=== PATIENT | male | born 1950 | race Caucasian/White ===

== ENCOUNTER 2019-06-30 09:42 | Outpatient (CLI) | payer MEDICARE, SELFPAY ==
[2019-06-30 13:35] LABS: Blood Urea Nitrogen 16 mg/dL (9-20); Calcium 9.2 mg/dL (8.4-10.2); Carbon Dioxide 30 mmol/L (22-30); Chloride 102 mmol/L (98-107); Cholesterol 155 mg/dL (0-200); Estimated Glomerular Filt Rate > 60; Glucose 98 mg/dL (75-110); HDL Direct 37 mg/dL; Potassium 4.4 mmol/L (3.4-5.0); Sodium 141 mmol/L (137-145); Triglycerides 119 mg/dL (<150)
[2019-06-30 13:37] LABS: Hemoglobin A1C 5.8 % (<5.7)
[2019-06-30 13:46] LABS: LDL Cholesterol Direct 108 mg/dL
[2019-07-03 01:45] LABS: Homocysteine 13.6 umol/L (<11.4)
== END 2019-06-30 09:43 | disposition home or self-care (01) ==
LOC: ANHWCLAB 09:48
PROVIDERS: PCP Internal Medicine; Visit Provider Internal Medicine
DX: Z79.899 Other long term (current) drug therapy (principal); I10 Essential (primary) hypertension; E78.5 Hyperlipidemia, unspecified
CPT/HCPCS: 36415; 80048; 80061; 83036; 83090; 84443

== ENCOUNTER 2019-09-05 09:53 | Outpatient (CLI) | payer MEDICARE, SELFPAY ==
[2019-09-05 10:22] LABS: Potassium 4.2 mmol/L (3.4-5.0)
[2019-09-05 10:31] LABS: Hemoglobin A1C 5.6 % (<5.7)
[2019-09-05 10:33] LABS: Blood Urea Nitrogen 12 mg/dL (9-20); Calcium 9.2 mg/dL (8.4-10.2); Carbon Dioxide 30 mmol/L (22-30); Chloride 103 mmol/L (98-107); Cholesterol 101 mg/dL (0-200); Estimated Glomerular Filt Rate > 60; Glucose 98 mg/dL (75-110); HDL Direct 42 mg/dL; Sodium 141 mmol/L (137-145); Triglycerides 56 mg/dL (<150)
[2019-09-05 10:34] LABS: LDL Cholesterol Direct 45 mg/dL
[2019-09-05 10:51] LABS: Prostate Specific Antigen 0.9 ng/mL (< OR = 4.0)
== END 2019-09-05 09:54 | disposition home or self-care (01) ==
PROVIDERS: PCP Internal Medicine; Visit Provider Internal Medicine
DX: Z12.5 Encounter for screening for malignant neoplasm of prostate (principal); I10 Essential (primary) hypertension; R73.03 Prediabetes; E78.5 Hyperlipidemia, unspecified
CPT/HCPCS: 36415; 80048; 80061; 83036; 84153; G0103

== ENCOUNTER 2020-02-28 08:41 | Outpatient (CLI) | payer MEDICARE, SELFPAY ==
[2020-02-28 08:58] LABS: Basophils Percent Auto 0.5 % (0.2-1.2); Eosinophils Absolute Auto 0.2 K/mm3 (0-0.3); Eosinophils Percent Auto 2.4 % (0-4.4); Hematocrit 46.5 % (42.0-52.0); Hemoglobin 15.8 g/dL (14.0-18.0); Immature Granulocyte Absolute 0.01 K/mm3 (0.00-0.031); Immature Granulocyte Percent A 0.2 % (0-0.5); Lymphocytes Absolute Auto 2.19 K/mm3 (0.9-3.2); Lymphocytes Percent Auto 34.8 % (18.3-44.2); Mean Corpuscular Volume 91.4 fl (80-100); Mean Platelet Volume 10.1 fl (7.4-10.4); Monocytes Absolute Auto 0.5 K/mm3 (0.1-0.6); Monocytes Percent Auto 8.6 % (2.6-8.5); Neutrophils Absolute Auto 3.4 K/mm3 (1.3-6.7); Neutrophils Percent Auto 53.5 % (45.5-73.1); Platelet Count Result 190 k/mm3 (150-375); Red Blood Count 5.09 M/mm3 (4.6-6.20); Red Cell Distribution Width 12.2 % (11.5-14.5); White Blood Count 6.3 K/mm3 (4.5-10.0)
[2020-02-28 09:08] LABS: Hemoglobin A1C 5.2 % (<5.7)
[2020-02-28 09:11] LABS: Alanine Aminotransferase 21 U/L (4-50); Albumin Level 4.3 g/dL (3.5-5.1); Alkaline Phosphatase 93 U/L (38-126); Anion Gap 7 mmol/L (8-16); Aspartate Amino Transferase 24 U/L (17-59); Bilirubin,Total 1.3 mg/dL (0.2-1.3); Blood Urea Nitrogen 14 mg/dL (9-20); Calcium 9.3 mg/dL (8.4-10.2); Carbon Dioxide 34 mmol/L (22-30); Chloride 100 mmol/L (98-107); Cholesterol 94 mg/dL (0-200); Estimated Glomerular Filt Rate > 60; Glucose 100 mg/dL (75-110); HDL Direct 37 mg/dL; Potassium 4.4 mmol/L (3.4-5.0); Sodium 141 mmol/L (137-145); Triglycerides 70 mg/dL (<150)
[2020-02-28 09:22] LABS: LDL Cholesterol Direct 43 mg/dL
[2020-03-02 11:45] LABS: Homocysteine 12.5 umol/L (<11.4)
== END 2020-02-28 08:42 | disposition home or self-care (01) ==
PROVIDERS: PCP Internal Medicine; Visit Provider Internal Medicine
DX: E78.5 Hyperlipidemia, unspecified (principal); I10 Essential (primary) hypertension; Z79.899 Other long term (current) drug therapy; R73.03 Prediabetes; R79.89 Other specified abnormal findings of blood chemistry
CPT/HCPCS: 36415; 80053; 80061; 83036; 83090; 85025

== ENCOUNTER 2020-07-11 09:21 | Outpatient (CLI) | payer MEDICARE, SELFPAY ==
[2020-07-11 09:48] LABS: Basophils Percent Auto 0.6 % (0.2-1.2); Eosinophils Absolute Auto 0.1 K/mm3 (0-0.3); Eosinophils Percent Auto 2.3 % (0-4.4); Hematocrit 46.8 % (42.0-52.0); Immature Granulocyte Absolute 0.01 K/mm3 (0.00-0.031); Immature Granulocyte Percent A 0.2 % (0-0.5); Lymphocytes Absolute Auto 1.96 K/mm3 (0.9-3.2); Lymphocytes Percent Auto 38.3 % (18.3-44.2); Mean Corpuscular HGB Conc 34.2 g/dl (32-36); Mean Corpuscular Hemoglobin 31.1 pg (26-34); Mean Corpuscular Volume 90.9 fl (80-100); Monocytes Absolute Auto 0.5 K/mm3 (0.1-0.6); Monocytes Percent Auto 8.8 % (2.6-8.5); Neutrophils Absolute Auto 2.6 K/mm3 (1.3-6.7); Neutrophils Percent Auto 49.8 % (45.5-73.1); Platelet Count Result 184 k/mm3 (150-375); Red Blood Count 5.15 M/mm3 (4.6-6.20); Red Cell Distribution Width 12.4 % (11.5-14.5); White Blood Count 5.1 K/mm3 (4.5-10.0)
[2020-07-11 09:57] LABS: Anion Gap 5 mmol/L (8-16); Blood Urea Nitrogen 12 mg/dL (9-20); Calcium 9.3 mg/dL (8.4-10.2); Carbon Dioxide 33 mmol/L (22-30); Chloride 102 mmol/L (98-107); Cholesterol 95 mg/dL (0-200); Estimated Glomerular Filt Rate > 60; Glucose 98 mg/dL (75-110); HDL Direct 45 mg/dL; Sodium 140 mmol/L (137-145); Triglycerides 74 mg/dL (<150)
[2020-07-11 10:01] LABS: Add Urine Microscopic? YES; Appearance Urine Clear (Clear); Bilirubin Urine Negative (Negative); Blood Urine Negative (Negative); Color Urine Yellow (Yellow); Glucose Urine UA Negative (Negative); Ketones Urine Negative (Negative); Leukocyte Esterase Ur Negative LEU/UL (NEGATIVE); Mucus Urine Heavy /lpf; Nitrate Urine Negative (Negative); Protein Urine 1+ mg/dL (Negative); Specific Grav Ur 1.019 (1.001-1.035); WBC Urine 0-3 /hpf (0-3)
[2020-07-11 10:07] LABS: Hemoglobin A1C 5.5 % (<5.7)
[2020-07-11 10:09] LABS: LDL Cholesterol Direct 38 mg/dL
[2020-07-11 10:58] LABS: Vitamin D 25 Hydroxy 38.4 ng/mL
== END 2020-07-11 09:22 | disposition home or self-care (01) ==
LOC: ANHLAB 09:25
PROVIDERS: PCP Internal Medicine; Visit Provider Internal Medicine
DX: R73.03 Prediabetes (principal); Z79.899 Other long term (current) drug therapy; E78.5 Hyperlipidemia, unspecified; I10 Essential (primary) hypertension; E55.9 Vitamin D deficiency, unspecified
CPT/HCPCS: 36415; 80048; 80061; 81001; 82306; 83036; 85025

== ENCOUNTER 2020-07-22 13:58 | Outpatient (CLI) | payer MEDICARE, SELFPAY ==
--- NOTE | ~2020-07-22 | CT_ITS ---
EXAMINATION: CT abdomen pelvis wo/w con DATE: 07/22/2020 14:50 INDICATION: Hematuria TECHNIQUE: Computed tomography (CT) of the abdomen and pelvis was performed without intravenous contr ast. The dose-length product was 1231.85 mGy-cm. Automated exposure control and iterative reconstruct ion technique were employed. COMPARISON: None. FINDINGS: Lung bases are unremarkable. Heart size is normal. No significant pleural or pericardial ef fusion. There are calcified granulomas of the spleen. There is encapsulated groundglass opacification of the mesentery with associated small lymph nodes, consistent with sclerosing mesenteritis. No significant vascular abnormality. Enlarged prostate gland. 3.8 cm right renal cyst. No hydronephro sis. Left renal parapelvic cysts. No hydronephrosis. Gallbladder is present. Calcified granulomas of the spleen. Gallbladder present. Nonobstructive bowel gas pattern. Colonic di verticulosis without evidence for diverticulitis. Mild osteoarthritis of the hips. Irregular mixed ly tic and sclerotic lesions of L1 with subtle expansion of the vertebra. Mild lumbar spondylosis. No fr ee air or free fluid. IMPRESSION: 1. No acute abdominal abnormality. No findings to account for hematuria. 2: Irregular mixed lytic and sclerotic lesions of L1 with subtle expansion of the vertebra. Consider Paget's disease and metastatic disease. 3: Enlarged prostate gland. Reviewed, dictated and finalized at location A.
== END 2020-07-22 13:59 | disposition home or self-care (01) ==
PROVIDERS: PCP Internal Medicine; Visit Provider Internal Medicine
DX: R31.9 Hematuria, unspecified (principal); N40.0 Benign prostatic hyperplasia without lower urinary tract symptoms
CPT/HCPCS: 74178; Q9967

== ENCOUNTER 2020-08-07 08:52 | Outpatient (CLI) | payer MEDICARE, SELFPAY ==
--- NOTE | ~2020-08-07 | NM_ITS ---
EXAMINATION: NM bone scan whole body DATE: 08/07/2020 14:09 INDICATION: Disorder of bone with pagetoid changes at L1 on prior CT and radiographs TECHNIQUE: 27.2 mCi Tc-99m HDP was administered intravenously. Delayed whole-body scintigrams were o btained. COMPARISON: CT dated 07/22/2020 and radiographs dated 08/07/2020 FINDINGS: Prominent diffuse increased uptake throughout the L1 vertebral body and its posterior elements corres ponding to the territory changes seen on prior CT. There is additional moderate increased uptake asso ciated with severe facet osteoarthritis on the left at L5-S1. Additional likely degenerative mild khai nt centered uptake at the bilateral acromioclavicular joints and at the lateral compartment of the ri ght knee. No other suspicious foci of abnormal bone uptake to suggest metastatic disease. IMPRESSION: 1. Prominent diffuse increased uptake throughout the L1 vertebral body and posterior elements consist ent with Paget's disease as seen on prior CT . 2. Additional scattered likely degenerative joint centered uptake most prominent at the left L5-S1 fa cet joint. Reviewed, dictated and finalized at location B. IMPRESSION: 1. Prominent diffuse increased uptake throughout the L1 vertebral body and post erior elements consistent with Paget's disease as seen on prior CT . 2. Additional scattered likely degenerative joint centered uptake most prominen t at the left L5-S1 facet joint.
--- NOTE | ~2020-08-07 | XR_ITS ---
EXAMINATION: XR lumbar spine 2-3V DATE: 08/07/2020 09:22 INDICATION: Abnormal L1 vertebral body. TECHNIQUE: 3 views of lumbar spine were obtained. COMPARISON: CT abdomen and pelvis 07/22/2020 FINDINGS: Bone alignment is normal. Vertebral body heights are normal. L1 vertebral body demonstrates enlargement, cortical thickening, and trabecular thickening, consistent with Paget disease. There is mildly decreased disc height at L3-L4. There are endplate osteophytes at most levels. There is sever e facet joint osteoarthritis in lower lumbar spine. IMPRESSION: 1. 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 2. Mild lumbar spondylosis. Reviewed, dictated and finalized at location A.
--- NOTE | ~2020-08-07 | XR_ITS ---
EXAMINATION: XR sacrum coccyx min 2V DATE: 08/07/2020 09:22 INDICATION: Disorder of bone, unspecified. TECHNIQUE: 3 views of the sacrum and coccyx were obtained. COMPARISON: CT abdomen and pelvis 07/22/2020 FINDINGS: Bone alignment is normal. No fracture. There is mild lumbar spondylosis. There is mild oste oarthritis of the sacroiliac joints. IMPRESSION: 1. Mild lumbar spondylosis. Reviewed, dictated and finalized at location A. IMPRESSION: 1. Mild lumbar spondylosis.
== END 2020-08-07 08:53 | disposition home or self-care (01) ==
PROVIDERS: PCP Internal Medicine; Visit Provider Internal Medicine
DX: M89.9 Disorder of bone, unspecified (principal); M47.816 Spondylosis without myelopathy or radiculopathy, lumbar region; M88.1 Osteitis deformans of vertebrae
CPT/HCPCS: 72100; 72220; 78306; A9561

== ENCOUNTER 2020-08-09 09:58 | Outpatient (CLI) | payer MEDICARE, SELFPAY ==
[2020-08-09 10:47] LABS: Calcium 9.4 mg/dL (8.4-10.2)
[2020-08-09 11:24] LABS: Vitamin D 25 Hydroxy 35.2 ng/mL
[2020-08-14 19:28] LABS: Alkaline Phosphatase 81 U/L (35-144); Macrohepatic Isoenzymes 0 % (<=0)
== END 2020-08-09 09:59 | disposition home or self-care (01) ==
PROVIDERS: PCP Internal Medicine; Visit Provider Internal Medicine
DX: E55.9 Vitamin D deficiency, unspecified (principal); M89.9 Disorder of bone, unspecified; Z79.899 Other long term (current) drug therapy
CPT/HCPCS: 36415; 82306; 82310; 84075; 84080

== ENCOUNTER 2020-11-21 08:10 | Outpatient (CLI) | payer MEDICARE, SELFPAY ==
[2020-11-21 08:39] LABS: Alanine Aminotransferase 21 U/L (4-50); Albumin Level 4.3 g/dL (3.5-5.1); Alkaline Phosphatase 89 U/L (38-126); Anion Gap 5 mmol/L (8-16); Aspartate Amino Transferase 24 U/L (17-59); Bilirubin,Total 1.1 mg/dL (0.2-1.3); Blood Urea Nitrogen 9 mg/dL (9-20); Calcium 9.1 mg/dL (8.4-10.2); Carbon Dioxide 32 mmol/L (22-30); Chloride 104 mmol/L (98-107); Cholesterol 100 mg/dL (0-200); Estimated Glomerular Filt Rate > 60; Glucose 95 mg/dL (65-110); HDL Direct 46 mg/dL; Potassium 4.2 mmol/L (3.4-5.0); Sodium 141 mmol/L (137-145); Triglycerides 60 mg/dL (<150)
[2020-11-21 08:50] LABS: LDL Cholesterol Direct 40 mg/dL
[2020-11-21 11:32] LABS: Hemoglobin A1C 5.7 % (<5.7)
== END 2020-11-21 08:11 | disposition home or self-care (01) ==
PROVIDERS: PCP Internal Medicine; Visit Provider Internal Medicine
DX: Z12.5 Encounter for screening for malignant neoplasm of prostate (principal); R73.03 Prediabetes; E78.5 Hyperlipidemia, unspecified; I10 Essential (primary) hypertension
CPT/HCPCS: 36415; 80053; 80061; 83036; 84153; G0103

== ENCOUNTER 2021-03-14 08:49 | Outpatient (CLI) | payer MEDICARE, SELFPAY ==
[2021-03-14 09:29] LABS: Hemoglobin A1C 5.4 % (<5.7)
[2021-03-14 09:31] LABS: Alanine Aminotransferase 19 U/L (4-50); Albumin Level 4.3 g/dL (3.5-5.1); Alkaline Phosphatase 85 U/L (38-126); Anion Gap 3 mmol/L (8-16); Aspartate Amino Transferase 23 U/L (17-59); Bilirubin,Total 0.9 mg/dL (0.2-1.3); Blood Urea Nitrogen 12 mg/dL (9-20); Calcium 9.4 mg/dL (8.4-10.2); Carbon Dioxide 32 mmol/L (22-30); Chloride 104 mmol/L (98-107); Cholesterol 107 mg/dL (0-200); Estimated Glomerular Filt Rate > 60; Glucose 104 mg/dL (65-110); HDL Direct 47 mg/dL; Potassium 4.5 mmol/L (3.4-5.0); Sodium 139 mmol/L (137-145); Triglycerides 79 mg/dL (<150)
[2021-03-14 09:42] LABS: LDL Cholesterol Direct 47 mg/dL
[2021-03-14 09:48] LABS: Free T4 Free Thyroxine 0.88 ng/mL (0.78-2.19)
== END 2021-03-14 08:50 | disposition home or self-care (01) ==
PROVIDERS: PCP Internal Medicine; Visit Provider Internal Medicine
DX: R73.03 Prediabetes (principal); I10 Essential (primary) hypertension; Z51.81 Encounter for therapeutic drug level monitoring; Z79.899 Other long term (current) drug therapy; E78.5 Hyperlipidemia, unspecified
CPT/HCPCS: 36415; 80048; 80061; 80076; 83036; 84439; 84443

== ENCOUNTER 2021-03-17 09:25 | Outpatient (CLI) | payer MEDICARE, SELFPAY ==
--- NOTE | ~2021-03-17 | XR_ITS ---
XR lumbar spine 2-3V DATE: 03/17/2021 09:44 INDICATION: Low back pain. No injury. TECHNIQUE: AP, lateral, coned lateral lumbosacral views COMPARISON: 08/07/2020 lumbar spine 07/22/2020 CT abdomen pelvis FINDINGS: There is degenerative spurring of the lower thoracic spine. There is patchy lucency and sclerosis first lumbar vertebral body, previously attributed to Paget's d isease. There is degenerative spurring an moderate loss of interspace height at L1-L4. No fracture or bone destruction noted otherwise. The sacroiliac joints are intact. IMPRESSION: Paget's disease of L1 Moderate degenerative disc disease of the lumbar spine Reviewed, dictated and finalized at location A. RETE ANALYST
== END 2021-03-17 09:26 | disposition home or self-care (01) ==
LOC: ANHIMG 09:30
PROVIDERS: PCP Internal Medicine; Visit Provider Internal Medicine
DX: M88.1 Osteitis deformans of vertebrae (principal); M51.36 Other intervertebral disc degeneration, lumbar region
CPT/HCPCS: 72100

== ENCOUNTER 2021-07-29 09:04 | Outpatient (CLI) | payer MEDICARE, SELFPAY ==
[2021-07-29 09:52] LABS: Basophils Percent Auto 0.6 % (0.2-1.2); Eosinophils Absolute Auto 0.2 K/mm3 (0-0.3); Eosinophils Percent Auto 3.2 % (0-4.4); Hematocrit 46.1 % (42.0-52.0); Hemoglobin 15.7 g/dL (14.0-18.0); Immature Granulocyte Absolute 0.01 K/mm3 (0.00-0.031); Immature Granulocyte Percent A 0.2 % (0-0.5); Lymphocytes Absolute Auto 1.98 K/mm3 (0.9-3.2); Lymphocytes Percent Auto 37.4 % (18.3-44.2); Mean Corpuscular HGB Conc 34.1 g/dl (32-36); Mean Corpuscular Hemoglobin 31.5 pg (26-34); Mean Corpuscular Volume 92.6 fl (80-100); Mean Platelet Volume 10.2 fl (7.4-10.4); Monocytes Absolute Auto 0.5 K/mm3 (0.1-0.6); Monocytes Percent Auto 9.3 % (2.6-8.5); Neutrophils Absolute Auto 2.6 K/mm3 (1.3-6.7); Neutrophils Percent Auto 49.3 % (45.5-73.1); Platelet Count Result 211 k/mm3 (150-375); Red Blood Count 4.98 M/mm3 (4.6-6.20); Red Cell Distribution Width 12.3 % (11.5-14.5); White Blood Count 5.3 K/mm3 (4.5-10.0)
[2021-07-29 10:01] LABS: Alanine Aminotransferase 24 U/L (4-50); Albumin Level 4.5 g/dL (3.5-5.1); Alkaline Phosphatase 97 U/L (38-126); Anion Gap 7 mmol/L (8-16); Aspartate Amino Transferase 26 U/L (17-59); Bilirubin,Total 1.4 mg/dL (0.2-1.3); Blood Urea Nitrogen 12 mg/dL (9-20); Carbon Dioxide 31 mmol/L (22-30); Chloride 103 mmol/L (98-107); Cholesterol 108 mg/dL (0-200); Estimated Glomerular Filt Rate > 60; Glucose 105 mg/dL (65-110); HDL Direct 38 mg/dL; Potassium 4.4 mmol/L (3.4-5.0); Sodium 141 mmol/L (137-145); Triglycerides 84 mg/dL (<150)
[2021-07-29 10:02] LABS: Appearance Urine Clear (Clear); Bilirubin Urine Negative (Negative); Blood Urine Negative (Negative); Color Urine Yellow (Yellow); Glucose Urine UA Negative (Negative); Ketones Urine Negative (Negative); Leukocyte Esterase Ur Negative LEU/UL (Negative); Nitrate Urine Negative (Negative); Protein Urine Negative (Negative); Specific Grav Ur 1.015 (1.001-1.035); Urobilinogen Urine 0.2 mg/dL (<2.0)
[2021-07-29 10:11] LABS: LDL Cholesterol Direct 50 mg/dL
[2021-07-29 10:16] LABS: Free T4 Free Thyroxine 0.86 ng/mL (0.78-2.19)
[2021-07-29 10:22] LABS: Add Urine Microscopic? NO
[2021-07-29 10:43] LABS: Hemoglobin A1C 5.4 % (<5.7)
== END 2021-07-29 09:05 | disposition home or self-care (01) ==
LOC: ANHLAB 09:07
PROVIDERS: PCP Internal Medicine; Visit Provider Internal Medicine
DX: R73.03 Prediabetes (principal); E78.5 Hyperlipidemia, unspecified; Z51.81 Encounter for therapeutic drug level monitoring; Z79.899 Other long term (current) drug therapy; I10 Essential (primary) hypertension; R31.21 Asymptomatic microscopic hematuria
CPT/HCPCS: 36415; 80048; 80061; 80076; 81003; 83036; 84439; 84443; 85025

== ENCOUNTER 2021-12-11 09:39 | Outpatient (CLI) | payer MEDICARE, SELFPAY ==
[2021-12-11 10:25] LABS: Alanine Aminotransferase 24 U/L (6-50); Albumin Level 4.3 g/dL (3.5-5.1); Alkaline Phosphatase 97 U/L (38-126); Anion Gap 9 mmol/L (8-16); Aspartate Amino Transferase 27 U/L (17-59); Blood Urea Nitrogen 10 mg/dL (9-20); Carbon Dioxide 31 mmol/L (22-30); Chloride 100 mmol/L (98-107); Cholesterol 95 mg/dL (0-200); Estimated Glomerular Filt Rate > 60; Glucose 102 mg/dL (65-110); HDL Direct 38 mg/dL; Potassium 3.8 mmol/L (3.4-5.0); Sodium 140 mmol/L (137-145); Triglycerides 70 mg/dL (<150)
[2021-12-11 10:35] LABS: Hemoglobin A1C 5.7 % (<5.7)
[2021-12-11 10:36] LABS: LDL Cholesterol Direct 33 mg/dL
[2021-12-11 10:53] LABS: Prostate Specific Antigen 1.3 ng/mL (< OR = 4.0)
== END 2021-12-11 09:40 | disposition home or self-care (01) ==
LOC: ANHLAB 09:43
PROVIDERS: PCP Internal Medicine; Visit Provider Internal Medicine
DX: E78.5 Hyperlipidemia, unspecified (principal); Z12.5 Encounter for screening for malignant neoplasm of prostate; R73.03 Prediabetes; I10 Essential (primary) hypertension
CPT/HCPCS: 36415; 80053; 80061; 83036; 84153; G0103

== ENCOUNTER 2021-12-18 11:34 | Outpatient (CLI) | payer MEDICARE, SELFPAY ==
--- NOTE | ~2021-12-18 | XR_ITS ---
. EXAMINATION: XR lumbar spine 2-3V DATE: 12/18/2021 12:11 INDICATION: Osteitis deformans of unspecified bone. TECHNIQUE: 3 views of lumbar spine were obtained. COMPARISON: Lumbar spine radiographs 03/17/2021, CT abdomen and pelvis 07/22/2020 FINDINGS: Bone alignment is normal. Vertebral body heights are normal. There is cortical and trabecul ar thickening and L1, consistent with Paget disease. There is mildly decreased disc height at L2-L3 a nd L3-L4. There are endplate osteophytes at most levels. There is multilevel facet joint osteoarthrit is, severe at L5-S1. IMPRESSION: 1. Mild lumbar spondylosis. 2. Paget disease involving L1. Reviewed, dictated and finalized at location A.
== END 2021-12-18 11:35 | disposition home or self-care (01) ==
LOC: ANHIMG 11:45
PROVIDERS: PCP Internal Medicine; Visit Provider Internal Medicine
DX: M47.816 Spondylosis without myelopathy or radiculopathy, lumbar region (principal); M88.1 Osteitis deformans of vertebrae
CPT/HCPCS: 72100

== ENCOUNTER 2022-04-07 09:36 | Outpatient (CLI) | payer MEDICARE, SELFPAY ==
[2022-04-07 10:08] LABS: Cholesterol 119 mg/dL (0-200); HDL Direct 44 mg/dL; Triglycerides 86 mg/dL (<150)
[2022-04-07 10:18] LABS: LDL Cholesterol Direct 56 mg/dL
[2022-04-07 10:38] LABS: Hemoglobin A1C 5.6 % (<5.7)
== END 2022-04-07 09:37 | disposition home or self-care (01) ==
LOC: ANHLAB 09:37
PROVIDERS: PCP Internal Medicine; Visit Provider Internal Medicine
DX: E78.5 Hyperlipidemia, unspecified (principal); Z79.899 Other long term (current) drug therapy; I10 Essential (primary) hypertension; R73.03 Prediabetes
CPT/HCPCS: 36415; 80061; 83036

== ENCOUNTER 2022-09-16 11:00 | Outpatient (CLI) | payer MEDICARE, SELFPAY ==
[2022-09-16 12:05] LABS: Basophils Percent Auto 0.6 % (0.2-1.2); Eosinophils Absolute Auto 0.2 K/mm3 (0-0.3); Eosinophils Percent Auto 2.9 % (0-4.4); Hematocrit 45.7 % (42.0-52.0); Hemoglobin 15.4 g/dL (14.0-18.0); Immature Granulocyte Absolute 0.01 K/mm3 (0.00-0.031); Immature Granulocyte Percent A 0.2 % (0-0.5); Lymphocytes Absolute Auto 1.75 K/mm3 (0.9-3.2); Lymphocytes Percent Auto 33.6 % (18.3-44.2); Mean Corpuscular HGB Conc 33.7 g/dl (32-36); Mean Corpuscular Volume 92.1 fl (80-100); Mean Platelet Volume 10.3 fl (7.4-10.4); Monocytes Absolute Auto 0.5 K/mm3 (0.1-0.6); Monocytes Percent Auto 9.4 % (2.6-8.5); Neutrophils Absolute Auto 2.8 K/mm3 (1.3-6.7); Neutrophils Percent Auto 53.3 % (45.5-73.1); Platelet Count Result 188 k/mm3 (150-375); Red Blood Count 4.96 M/mm3 (4.6-6.20); Red Cell Distribution Width 12.4 % (11.5-14.5); White Blood Count 5.2 K/mm3 (4.5-10.0)
[2022-09-16 12:08] LABS: Hemoglobin A1C 5.5 % (<5.7)
[2022-09-16 12:10] LABS: Alanine Aminotransferase 24 U/L (6-50); Albumin Level 4.4 g/dL (3.5-5.1); Alkaline Phosphatase 98 U/L (38-126); Anion Gap 5 mmol/L (8-16); Aspartate Amino Transferase 24 U/L (17-59); Blood Urea Nitrogen 10 mg/dL (9-20); Calcium 8.4 mg/dL (8.4-10.2); Carbon Dioxide 34 mmol/L (22-30); Chloride 102 mmol/L (98-107); Cholesterol 121 mg/dL (0-200); Estimated Glomerular Filt Rate > 60; Glucose 100 mg/dL (65-110); HDL Direct 59 mg/dL; Sodium 141 mmol/L (137-145); Triglycerides 57 mg/dL (<150)
[2022-09-16 12:22] LABS: LDL Cholesterol Direct 58 mg/dL
[2022-09-16 12:41] LABS: Free T4 Free Thyroxine 0.95 ng/mL (0.78-2.19)
== END 2022-09-16 11:01 | disposition home or self-care (01) ==
PROVIDERS: PCP Internal Medicine; Visit Provider Internal Medicine
DX: E78.5 Hyperlipidemia, unspecified (principal); I10 Essential (primary) hypertension; Z13.29 Encounter for screening for other suspected endocrine disorder; R73.03 Prediabetes; Z79.899 Other long term (current) drug therapy
CPT/HCPCS: 36415; 80053; 80061; 83036; 84439; 84443; 85025

== ENCOUNTER 2023-03-01 09:40 | Outpatient (CLI) | payer MEDICARE, SELFPAY ==
[2023-03-01 10:14] LABS: Hemoglobin A1C 5.5 % (<5.7)
[2023-03-01 10:37] LABS: Alanine Aminotransferase 21 U/L (6-50); Albumin Level 4.2 g/dL (3.5-5.1); Alkaline Phosphatase 90 U/L (38-126); Anion Gap 6 mmol/L (8-16); Aspartate Amino Transferase 20 U/L (17-59); Blood Urea Nitrogen 13 mg/dL (9-20); Calcium 9.1 mg/dL (8.4-10.2); Carbon Dioxide 30 mmol/L (22-30); Chloride 103 mmol/L (98-107); Cholesterol 122 mg/dL (0-200); Estimated Glomerular Filt Rate > 60; Glucose 106 mg/dL (65-110); HDL Direct 42 mg/dL; Potassium 4.4 mmol/L (3.4-5.0); Sodium 139 mmol/L (137-145); Triglycerides 100 mg/dL (<150)
[2023-03-01 10:48] LABS: LDL Cholesterol Direct 58 mg/dL
== END 2023-03-01 09:41 | disposition home or self-care (01) ==
LOC: ANHLAB 09:41
PROVIDERS: PCP Internal Medicine; Visit Provider Internal Medicine
DX: R73.03 Prediabetes (principal); E78.5 Hyperlipidemia, unspecified; I10 Essential (primary) hypertension
CPT/HCPCS: 36415; 80053; 80061; 83036

== ENCOUNTER 2023-04-02 10:29 | Observation (INO) | payer MEDICARE, SELFPAY ==
--- NOTE | ~2023-04-02 | XR_ITS ---
XR chest 1V portable DATE: 04/02/2023 15:13 INDICATION: Infection TECHNIQUE: Portable upright AP chest on 04/02/2023 at 1456 hours COMPARISON: None FINDINGS: Heart size is within normal limits. No hilar or mediastinal enlargement. No pulmonary infil trate or consolidation, pleural effusion or pulmonary vascular congestion or pneumothorax is detected . Osteopenia. Degenerative spurring of the thoracic spine. IMPRESSION: No active cardiopulmonary disease Reviewed, dictated and finalized at location A. E MACHINE FEEDER
--- NOTE | ~2023-04-02 | XR_ITS ---
XR knee RT 3V 04/02/2023 11:00 Indication: Right knee swelling Procedure: 3 views right knee Comparison: No prior studies for comparison. Findings: Moderate tricompartment osteoarthritis. Moderate joint effusion. No acute fracture or traum atic malalignment no foreign bodies. Impression: 1: No acute fracture. 2: Moderate tricompartment osteoarthritis of the right knee. 3: Moderate joint effusion. Reviewed, dictated and finalized at location B. HOUSE WORKER Impression: 1: No acute fracture. 2: Moderate tricompartment osteoarthritis of the right knee. 3: Moderate joint effusion.
[2023-04-02 10:35] VITALS: BP 129/77; PULSE 114; RESP 16; TEMP 37; O2SAT 98
--- NOTE | 2023-04-02 12:48 | PC.NURSE ---
blood and synovial fluid hand carried to lab.
[2023-04-02 12:51] LABS: Basophils Percent Auto 0.2 % (0.2-1.2); Eosinophils Percent Auto 0.1 % (0-4.4); Hematocrit 42.5 % (42.0-52.0); Hemoglobin 14.1 g/dL (14.0-18.0); Immature Granulocyte Absolute 0.03 K/mm3 (0.00-0.031); Immature Granulocyte Percent A 0.3 % (0-0.5); Lymphocytes Absolute Auto 1.39 K/mm3 (0.9-3.2); Mean Corpuscular HGB Conc 33.2 g/dl (32-36); Mean Corpuscular Hemoglobin 30.5 pg (26-34); Mean Corpuscular Volume 91.8 fl (80-100); Mean Platelet Volume 10.8 fl (7.4-10.4); Monocytes Absolute Auto 1.3 K/mm3 (0.1-0.6); Monocytes Percent Auto 13.9 % (2.6-8.5); Neutrophils Absolute Auto 6.5 K/mm3 (1.3-6.7); Neutrophils Percent Auto 70.5 % (45.5-73.1); Platelet Count Result 216 k/mm3 (150-375); Red Blood Count 4.63 M/mm3 (4.6-6.20); Red Cell Distribution Width 12.1 % (11.5-14.5); White Blood Count 9.3 K/mm3 (4.5-10.0)
[2023-04-02 13:10] LABS: Anion Gap 10 mmol/L (8-16); Blood Urea Nitrogen 14 mg/dL (9-20); Calcium 9.1 mg/dL (8.4-10.2); Carbon Dioxide 27 mmol/L (22-30); Chloride 100 mmol/L (98-107); Estimated CRCL calculation 67 ml/min; Estimated Glomerular Filt Rate > 60; Glucose 120 mg/dL (65-110); Sodium 137 mmol/L (137-145)
[2023-04-02 13:15] LABS: CRP 18.6 mg/dL (<1.0)
[2023-04-02 13:29] LABS: Erythrocyte Sedimentation Rate 59 mm/hr (0-20)
[2023-04-02 14:12] LABS: Appearance Synovial Fluid Hazy (Clear); Color Synovial Fluid Yellow (Colorless); Source Synovial Fluid Synovial fluid
[2023-04-02 14:13] LABS: Crystals Synovial Fluid None Seen (None Seen); Lymphocytes Synovial Fluid 2 %; Monocytes Synovial Fluid 16 %; Neutrophils Synovial Fluid 82 % (0-25); Nucleated Cell Synovial Fluid 42300 /uL (0-200); RBC Synovial Fluid < 2000 /uL (0-0)
[2023-04-02] MEDS: LACTATED RINGERS 1,000 ML 999 ML IV CONT (14:51)
[2023-04-02 14:54] VITALS: BP 124/77; RESP 16; TEMP 37.7; O2SAT 97
--- NOTE | 2023-04-02 16:06 | ED.LOWEXIN ---
HPI - Extremity Injury (Lower) General Chief Complaint: Extremity Injury, Lower Stated Complaint: knee swelling Time Seen by Provider: 04/02/23 11:24 History of Present Illness HPI Narrative: Patient having swelling and pain to his right knee that started yesterday, denies any recent falls, hurts to bend his knee. Was seen recently by doctor for slight cough and placed on azithromycin. No obvious fevers/chills, no recent injury. Related Data Home Medications Medication Instructions Recorded Confirmed triamcinolone acetonide 0.1 % 1 applic topical BID PRN Itching 04/12/19 03/11/23 topical cream Allergies Allergy/AdvReac Type Severity Reaction Status Date / Time niacin Allergy Unknown Itching, Verified 04/02/23 10:37 RASH Review of Systems Review of Systems: All systems reviewed & are unremarkable except as noted in HPI and below PMFSH Past Medical History Medical History (Updated 04/02/23 @ 17:08 by Nichole Hsu MD) Benign essential hypertension BMI 27.0-27.9,adult BMI 28.0-28.9,adult BMI 29.0-29.9,adult BMI 30.0-30.9,adult Elevated homocysteine Encounter for Medicare annual wellness exam Encounter for routine adult health examination with abnormal findings Encounter for routine adult health examination without abnormal findings Enlarged prostate Follow up Hearing loss Hematuria Hyperlipidemia Lesion of bone of lumbosacral spine Need for influenza vaccination On buttermaker helper drug therapy Paget's bone disease Pre-diabetes Prostate cancer screening Rash Screening for colorectal cancer Vitamin D deficiency Family History Family History Father Hypertension Mother Hypertension Family history of diabetes mellitus in first degree relative Diabetes mellitus Sibling Hypertension Social History Social History Smoking status: Never smoker Alcohol intake: current Lack of Transportation: No Lack of Food: Never True Current Housing: I Have Housing Concerned About Future Housing: No Difficulty Paying Gas/Electric Bills: No Difficulty Paying for Meds: No Currently Unemployed: No Education: High School Diploma/GED Difficulty w/ Childcare or Family Care: No Living arrangements: with family Gender identity (if verbalized by the patient): Male Exam Narrative: EXAMINATION OF ORGAN SYSTEMS/BODY AREAS: Constitutional: Vital signs per nursing GENERAL: Lying comfortably in bed HEAD: Normal with no signs of head trauma. EYES: EOMI, conjunctiva normal ENT: Hearing grossly intact LUNGS: Nonlabored breathing. HEART: [Regular rate and rhythm] ABD: [Soft], [nontender to palpation] EXT: Pain with movement of R knee; tense warm swelling/effusion R knee, normal DP pulse, no signs of overlying erythema SKIN: [No rashes or lesions.] NEURO: [Alert and oriented x 3. No gross focal sensory or strength deficits.] PSYCH: Normal affect Course Vital Signs Vital signs: Vital Signs Temperature 98.6 F 04/02/23 10:35 Pulse Rate 114 H 04/02/23 10:35 Respiratory Rate 16 04/02/23 10:35 Blood Pressure 129/77 04/02/23 10:35 Pulse Oximetry 98 04/02/23 10:35 Oxygen Delivery Room Air 04/02/23 10:35 Temperature 99.8 F H 04/02/23 14:54 Pulse Rate 114 H 04/02/23 10:35 Respiratory Rate 16 04/02/23 14:54 Blood Pressure 124/77 04/02/23 14:54 Pulse Oximetry 97 04/02/23 14:54 Oxygen Delivery Room Air 04/02/23 10:35 Procedures Joint Aspiration/Injection Joint Asp./Inject. 1: Joint Aspiration Date: 04/02/23 Joint Aspiration Time: 12:00 Time Out Performed: Yes Side of body: right Joint Aspirated: knee Ultrasound Guidance: No Skin Prep: other (povidone iodine 1%, chlorhexidine, sterile prep/drape) Local Anesthetic: lidocaine 1% Amount of anesthesia used (mL): 2 Needle Size Used
--- NOTE | 2023-04-02 16:22 | PM.IMHP ---
H&P: HPI History of Present Illness Date/Time: 04/02/23 16:22 Chief Complaint: Knee Pain Narrative: 72 y/o M presents here with painful R knee with PMH of HTN, BPH, Paget's, vit D deficiency, and HLD. Patient reports that morning he woke up and noticed swelling to his right knee. No previous trauma prior to swelling. Patient was having difficulty bending knee due to pain, progressed to where patient was unable to bend knee and had reduction in overall mobility. No erythema or pinpoint tenderness - tenderness diffuse throughout knee. XRay showed no acute fx, moderate OA, and mod joint effusion. Tap of R knee performed in ED with 60 mL of cloudy fluid extracted and sent for analysis. Analysis of arthrocentesis synovial fluid revealed <2000 RBCs, 42,300 nuc cells, 82 neutrophils, no crystals seen - some testing still pending. presentation and lab findings concerning for septic joint, ortho consulted, patient started on antibiotics, and admitted here for further care. no other complaints identified by patient beyond recent URI, started on Z-Pack 2 days after onset of symptoms - feeling better. [facility] Past Medical History Medical History (Updated 04/02/23 @ 23:28 by Unique Bolaños APRN) Elevated homocysteine Enlarged prostate Hearing loss HTN (hypertension) Hyperlipidemia Lesion of bone of lumbosacral spine Paget's bone disease Pre-diabetes Seasonal allergies Vitamin D deficiency Surgical History Surgical History (Updated 04/02/23 @ 23:29 by Unique Bolaños APRN) History of arthroplasty of right knee 1980 Family History Family History Father Hypertension Mother Hypertension Family history of diabetes mellitus in first degree relative Diabetes mellitus Sibling Hypertension Social History Social History (Updated 04/02/23 @ 23:30 by Unique Bolaños APRN) Social History: Currently lives with his brother. Elects Vivek Merrill as his surrogate decision maker. Full Code. Smoking status: Never smoker Alcohol intake: former Substance use: never Lack of Transportation: No Lack of Food: Never True Current Housing: I Have Housing Concerned About Future Housing: No Difficulty Paying Gas/Electric Bills: No Difficulty Paying for Meds: No Currently Unemployed: No Education: High School Diploma/GED Difficulty w/ Childcare or Family Care: No Living arrangements: with family Gender identity (if verbalized by the patient): Male Spiritual care concerns: No Meds Home Medications and Allergies Home Medications Medication Instructions Recorded Confirmed Type Fish Oil 1,200 unit PO BID 04/02/23 04/02/23 History amlodipine 5 mg tablet 5 mg PO DAILY 04/02/23 04/02/23 History atorvastatin 10 mg tablet 5 mg PO DAILY 04/02/23 04/02/23 History lisinopril 20 mg tablet 20 mg PO DAILY 04/02/23 04/02/23 History Allergies Allergy/AdvReac Type Severity Reaction Status Date / Time niacin Allergy Unknown Itching, Verified 04/02/23 10:37 RASH Vital Signs Vital Signs - 24 hr 04/02/23 10:35 04/02/23 14:54 Temperature 98.6 F 99.8 F H Pulse Rate 114 H Respiratory Rate 16 16 Blood Pressure 129/77 124/77 Pulse Oximetry 98 97 Oxygen Delivery Room Air Exam Const: General: no acute distress and uncomfortable HENMT: Face/Nose/Sinus: Normal nares present Mouth: Yes moist mucous membranes Eyes: General: appearance normal, both eyes and all related structures Sclera: sclerae normal Pupils: Equal, round and reactive pupils present Resp: Effort & Inspection: normal respiratory effort Auscultation: clear to auscultation bilaterally Cardio: Rate: regular rate Rhythm: regular rhythm Other: S1-S2 present without murmur, rub, ectopy GI: Inspection: distended GI Palp: Yes Soft to palpation Auscultation: normal bowel sounds Skin: General skin exam: normal color and no rashes or lesions noted Wo
[2023-04-02 17:17] LABS: Appearance Urine Cloudy (Clear); Bacteria Urine None Seen /hpf; Bilirubin Urine Negative (Negative); Blood Urine Negative (Negative); Color Urine Yellow (Yellow); Glucose Urine UA Negative (Negative); Ketones Urine 1+ mg/dL (Negative); Leukocyte Esterase Ur Negative LEU/UL (Negative); Nitrate Urine Negative (Negative); Non Pathogenic Casts 0-2; Protein Urine 1+ mg/dL (Negative); RBC Urine 0-2 /hpf (0-2); Specific Grav Ur 1.022 (1.001-1.035); Squamous Epithelial Cell Urine None seen /hpf (Few)
[2023-04-02 17:52] LABS: Add Urine Microscopic? YES
[2023-04-02 18:49] VITALS: BP 118/69; PULSE 96; RESP 16; O2SAT 98
[2023-04-02 19:22] VITALS: BMI 29.6
--- NOTE | 2023-04-02 19:39 | ADMGEN ---
This patient, Wilson Merrill, was admitted to 3 [facility] Surg Room 316-01. Patient/family oriented to hospital policies and general routines including ID bracelet, bed and alarms, visiting hours, pain management, procedures, bathroom and other care routines, personal items, smoking policy, room service/diet, and visiting hours. Information on how to activate the Rapid Response Team has been discussed. Patient/Family are encouraged to report perceived risks to care and to ask questions if they do not understand what they are told or what they should do.
[2023-04-02 21:42] VITALS: BP 156/78; PULSE 102; RESP 18; TEMP 36.8; O2SAT 95
[2023-04-03 00:44] LABS: Erythrocyte Sedimentation Rate 113 mm/hr (0-20)
[2023-04-03] MEDS: SODIUM CHLORIDE 0.9% IV 1,000 ML 100 ML IV CONT (01:05)
[2023-04-03] MEDS: HYDROcodone/acetaminophen (*CRX) 5-325 MG TABLET 1 TAB PO ×3 (01:07→15:51)
[2023-04-03] MEDS: VANCOMYCIN 1,250 MG/NS 250 ML 1,250 MG/250 ML BAG 166.67 MG IVPB ×2 (02:10→03:59)
[2023-04-03 05:52] VITALS: BP 121/78; PULSE 92; RESP 18; TEMP 36.1; O2SAT 95
[2023-04-03 07:01] LABS: Basophils Percent Auto 0.4 % (0.2-1.2); Eosinophils Percent Auto 0.4 % (0-4.4); Hematocrit 37.5 % (42.0-52.0); Hemoglobin 12.4 g/dL (14.0-18.0); Immature Granulocyte Absolute 0.02 K/mm3 (0.00-0.031); Immature Granulocyte Percent A 0.3 % (0-0.5); Lymphocytes Absolute Auto 1.48 K/mm3 (0.9-3.2); Mean Corpuscular HGB Conc 33.1 g/dl (32-36); Mean Corpuscular Hemoglobin 30.5 pg (26-34); Mean Corpuscular Volume 92.1 fl (80-100); Mean Platelet Volume 10.4 fl (7.4-10.4); Monocytes Absolute Auto 1.2 K/mm3 (0.1-0.6); Monocytes Percent Auto 14.9 % (2.6-8.5); Neutrophils Absolute Auto 5.1 K/mm3 (1.3-6.7); Platelet Count Result 193 k/mm3 (150-375); Red Blood Count 4.07 M/mm3 (4.6-6.20); White Blood Count 7.8 K/mm3 (4.5-10.0)
[2023-04-03 07:24] LABS: Anion Gap 7 mmol/L (8-16); Blood Urea Nitrogen 12 mg/dL (9-20); Calcium 8.5 mg/dL (8.4-10.2); Carbon Dioxide 27 mmol/L (22-30); Chloride 103 mmol/L (98-107); Estimated CRCL calculation 74 ml/min; Estimated Glomerular Filt Rate > 60; Glucose 108 mg/dL (65-110); Potassium 3.6 mmol/L (3.4-5.0); Sodium 137 mmol/L (137-145)
[2023-04-03 07:32] LABS: CRP 19.8 mg/dL (<1.0)
[2023-04-03 08:03] LABS: Procalcitonin 0.2 ng/mL
[2023-04-03] MEDS: DOCUSATE SODIUM 100 MG CAPSULE PO ×2 (08:46→15:52)
[2023-04-03] MEDS: OMEGA 3 POLYUNSAT FATTY ACIDS 1 GM CAP PO (10:39)
[2023-04-03] MEDS: lisinopriL 20 MG TABLET PO (10:39)
[2023-04-03] MEDS: ATORVASTATIN 10 MG TABLET PO (10:39)
[2023-04-03] MEDS: amLODIPine BESYLATE 5 MG TABLET PO (10:40)
[2023-04-03] MEDS: BISACODYL 5 MG TABLET EC PO (10:43)
--- NOTE | 2023-04-03 12:22 | PM.CNOR ---
Assessment and Plan Assessment and plan (1) Effusion, right knee: Code(s): M25.461 - Effusion, right knee Status: Acute Assessment and Plan: KALEN IS S/P ASPIRATION FOR A POSSIBLE SEPTIC RIGHT KNEE JOINT. HE HAS SEVERE DJD PER XRAY. HIS 42 K WBC MAY BE RELATED TO AN INFLAMMATORY PROCESS OR AN EARLY SEPTIC PROCESS. HIS NEUTROPHIL COUNT IS WITHIN RANGE FOR POSSIBLE SEPTIC JOINT. HIS WBC PERIPHERAL COUNT IS NOT ELEVATED. THERE IS SOME CONCERN WITH HIS ELEVATED CRP WELL. HE CURRENTLY FROM A CLINICAL STAND POINT HAS IMPROVED FROM WHEN HIS PAIN BEGAN 2 DAYS AGO. HE MAY ALSO BE HAVING A FLAREUP OF HIS SEVERE DJD TO THE KNEE. HE IS CLINICALLY STABLE WITH NO SIGNS OF SEPSIS. RECOMMEND OBSERVATION FOR NOW TO OBSERVE FOR IMPROVEMENT AND TO WAIT ON CULTURES AND FOLLOW CRP LEVELS. IF CULTURES ARE NEGATIVE MAY CONSIDER RE ASPIRATION AND CORTISONE INJECTION. WILL FOLLOW History of Present Illness HPI Consult date: 04/03/23 Chief complaint: R knee pain and effusion Narrative: KALEN WAS IN THE ED YESTERDAY C/O A 2 DAY HISTORY OF RIGHT KNEE PAIN. HE DENIES ANY FEVER OR CHILLS OR ANY RECENT TRAUMA. HE STATES HIS KNEE LOCKED UP ON HIM NAD WAS HAVING PAIN WITH ROM. HE WAS SEEN IN THE ED AND HAD AN ASPIRATION WHICH WAS SUSPICIOUS FOR SEPTIC JOINT. ASPIRATION REVEALED 42.3 K WBC NAD 82% NEUTROPHILS. GRAM STAIN IS CURRENTLY NEGATIVE AND CULTURES ARE PENDING. HE WAS GIVEN ROCEPHIN IN THE ED. HE CURRENTLY IS FEELING MUCH BETTER AND IS NOT COMPLAINING OF SIGNIFICANT PAIN. HE HAS NO RECORD OF FEVER SINCE ADMISSION. HIS WBC COUNT IS WNL AND HE HAS AN ELEVATED CRP AND ESR. [facility] Past Medical History Medical History Elevated homocysteine Enlarged prostate Hearing loss HTN (hypertension) Hyperlipidemia Lesion of bone of lumbosacral spine Paget's bone disease Pre-diabetes Seasonal allergies Vitamin D deficiency Surgical History Surgical History History of arthroplasty of right knee 1980 Family History Family History Father Hypertension Mother Hypertension Family history of diabetes mellitus in first degree relative Diabetes mellitus Sibling Hypertension Social History Social History Social History: Currently lives with his brother. Elects Vivek Tobijessica as his surrogate decision maker. Full Code. Smoking status: Never smoker Alcohol intake: former Substance use: never Lack of Transportation: No Lack of Food: Never True Current Housing: I Have Housing Concerned About Future Housing: No Difficulty Paying Gas/Electric Bills: No Difficulty Paying for Meds: No Currently Unemployed: No Education: High School Diploma/GED Difficulty w/ Childcare or Family Care: No Living arrangements: with family Gender identity (if verbalized by the patient): Male Spiritual care concerns: No Meds Home Medications and Allergies Home Medications Medication Instructions Recorded Confirmed Type Fish Oil 1,200 unit PO BID 04/02/23 04/02/23 History amlodipine 5 mg tablet 5 mg PO DAILY 04/02/23 04/02/23 History atorvastatin 10 mg tablet 5 mg PO DAILY 04/02/23 04/02/23 History lisinopril 20 mg tablet 20 mg PO DAILY 04/02/23 04/02/23 History Allergies Allergy/AdvReac Type Severity Reaction Status Date / Time niacin Allergy Unknown Itching, Verified 04/02/23 10:37 RASH Vital Signs Vital Signs - 24 hr 04/02/23 14:54 04/02/23 18:49 04/02/23 21:42 Temperature 37.7 C H 36.8 C Pulse Rate 96 102 H Respiratory Rate 16 16 18 Blood Pressure 124/77 118/69 156/78 H Pulse Oximetry 97 98 95 Oxygen Delivery 04/02/23 20:05 04/03/23 05:52 Temperature 36.1 C L Pulse Rate 92 Respiratory Rate 18 Blood Pressure 121/78 Pulse Oximetry 95 Oxygen Delivery Room Air
[2023-04-03 14:00] VITALS: BP 106/69; PULSE 79; RESP 18; TEMP 36.6; O2SAT 97
--- NOTE | 2023-04-03 15:09 | PM.IMPN ---
Progress Note: A&P Assessment and Plan (1) Effusion, right knee: Code(s): M25.461 - Effusion, right knee Status: Acute Assessment and Plan: Status post arthrocentesis performed in ED - 60 ccs out, sent for analysis. Analysis of arthrocentesis synovial fluid revealed <2000 RBCs, 42,300 nuc cells, 82 neutrophils, no crystals seen - some testing still pending. Ortho consulted. c/f septic joint due to mild tachycardia and mild elevation in temp (99.8F) in setting of elevated ESR (59) and CRP (18.6). started on ceftriaxone, transitioned to Vanc (pharmacist to dose) until gram stain has resulted. pain control. Continue vancomycin and ceftriaxone He does have history of right knee osteoarthritis needing arthroscopic surgery in the past Plan HTN: continue home amlodipine and lisinopril. HLD: continue home atorvastatin. supplements: continue fish oil. Diet: heart healthy GI Prophylaxis: not indicated DVT Prophylaxis: SCDs, Lovenox Lines: pIV Code Status: Full Code Subjective Date/time seen: 04/03/23 15:09 Interval history: Feeling at her now. No fever chills. Discussed with Orthopedics Review of Systems Review of Systems: All systems reviewed & are unremarkable except as noted in HPI and below Exam Narrative: GENERAL: Lying comfortably in bed HEAD:? Normal with no signs of head trauma. EYES:? EOMI, conjunctiva normal ENT:? Hearing grossly intact LUNGS:? Nonlabored breathing. HEART:? [Regular rate and rhythm] ABD:? [Soft], [nontender to palpation] EXT: Pain with movement of R knee; restricted range of motion on right knee. Mildly warm tender to touch. SKIN:? [No rashes or lesions.] NEURO: [Alert and oriented x 3. No gross focal sensory or strength deficits.] PSYCH: Normal affect Objective Data Vital Signs Vital Signs: Vital Signs - 24 hr 04/02/23 18:49 04/02/23 21:42 04/02/23 20:05 Temperature 98.2 F Pulse Rate 96 102 H Respiratory Rate 16 18 Blood Pressure 118/69 156/78 H Pulse Oximetry 98 95 Oxygen Delivery Room Air 04/03/23 05:52 Temperature 97 F L Pulse Rate 92 Respiratory Rate 18 Blood Pressure 121/78 Pulse Oximetry 95 Oxygen Delivery Intake/Output Intake/Output: Intake & Output 03/31/23 04/01/23 04/02/23 04/03/23 23:59 23:59 23:59 23:59 Intake Total 1050 500 Output Total 850 Balance 1050 -350 Meds/Results Medications: Active Medications Generic Name Dose Route Start Last Admin Trade Name Freq PRN Reason Stop Dose Admin Acetaminophen 650 mg 04/02/23 23:51 Acetaminophen 325 Mg Tablet PO Q4H PRN Mild Pain (1-3) or Fever Hydrocodone Bitart/Acetaminophen 1 tab 04/02/23 23:51 04/03/23 08:46 Hydrocodone/Acetaminophen (*Crx) 5-325 Mg Tablet PO 1 tab Q4H PRN Administration Moderate Pain (4-6) Amlodipine Besylate 5 mg 04/03/23 11:00 04/03/23 10:40 Amlodipine Besylate 5 Mg Tablet PO 5 mg QAM GLORIA Administration Atorvastatin Calcium 10 mg 04/03/23 11:00 04/03/23 10:39 Atorvastatin 10 Mg Tablet PO 10 mg DAILY GLORIA Administration Bisacodyl 5 mg 04/02/23 23:51 04/03/23 10:43 Bisacodyl 5 Mg Tablet Ec PO 5 mg DAILY PRN Administration Constipation Docusate Sodium 100 mg 04/03/23 09:00 04/03/23 08:46 Docusate Sodium 100 Mg Capsule PO 100 mg BID GLORIA Administration Enoxaparin Sodium 40 mg 04/03/23 09:00 04/03/23 10:40 Enoxaparin 40 Mg/0.4 Ml Syringe SUB-Q 40 mg DAILY GLORIA Administration Fish Oil 1 gm 04/03/23 11:00 04/03/23 10:39 [place] 3 Polyunsat Fatty Acids 1 Gm Cap PO 1 gm QAM GLORIA Administration Vancomycin HCl 1,500 mg in 500 mls @ 250 mls/hr 04/03/23 19:00 Vancomycin 1,500 Mg/D5w 500 Ml IVPB Q18H GLORIA Lisinopril 20 mg 04/03/23 11:00 04/03/23 10:39 Lisinopril 20 Mg Tablet PO 20 mg QAM GLORIA Administration Morphine Sulfate 2 mg 04/02/23 23:51 Morphine Sulfate (*Crx) 2 Mg/Ml Inj IV PUSH Q4H PRN Pain Rated 7-10
[2023-04-03] MEDS: cefTRIAXone 2 GM/NS 100 ML 2 GM/100 ML BAG IVPB (15:45)
[2023-04-03 22:00] VITALS: BP 128/79; PULSE 98; RESP 18; TEMP 37.4; O2SAT 95
[2023-04-04 05:19] VITALS: BP 115/73; PULSE 90; RESP 18; TEMP 37.4; O2SAT 95
[2023-04-04 07:21] LABS: Basophils Percent Auto 0.6 % (0.2-1.2); Eosinophils Absolute Auto 0.1 K/mm3 (0-0.3); Eosinophils Percent Auto 2.1 % (0-4.4); Hematocrit 39.9 % (42.0-52.0); Hemoglobin 13.3 g/dL (14.0-18.0); Immature Granulocyte Absolute 0.03 K/mm3 (0.00-0.031); Immature Granulocyte Percent A 0.5 % (0-0.5); Lymphocytes Absolute Auto 0.99 K/mm3 (0.9-3.2); Mean Corpuscular HGB Conc 33.3 g/dl (32-36); Mean Corpuscular Hemoglobin 30.5 pg (26-34); Mean Corpuscular Volume 91.5 fl (80-100); Mean Platelet Volume 10.5 fl (7.4-10.4); Monocytes Absolute Auto 0.9 K/mm3 (0.1-0.6); Monocytes Percent Auto 13.2 % (2.6-8.5); Neutrophils Absolute Auto 4.5 K/mm3 (1.3-6.7); Neutrophils Percent Auto 68.6 % (45.5-73.1); Platelet Count Result 201 k/mm3 (150-375); Red Blood Count 4.36 M/mm3 (4.6-6.20); White Blood Count 6.6 K/mm3 (4.5-10.0)
[2023-04-04 07:31] LABS: Alanine Aminotransferase 23 U/L (6-50); Albumin Level 3.3 g/dL (3.5-5.1); Alkaline Phosphatase 74 U/L (38-126); Anion Gap 9 mmol/L (8-16); Aspartate Amino Transferase 33 U/L (17-59); Bilirubin,Total 0.9 mg/dL (0.2-1.3); Blood Urea Nitrogen 12 mg/dL (9-20); Calcium 8.5 mg/dL (8.4-10.2); Carbon Dioxide 26 mmol/L (22-30); Chloride 100 mmol/L (98-107); Estimated CRCL calculation 74 ml/min; Estimated Glomerular Filt Rate > 60; Glucose 103 mg/dL (65-110); Magnesium 2.2 mg/dL (1.6-2.3); Potassium 3.5 mmol/L (3.4-5.0); Sodium 135 mmol/L (137-145)
[2023-04-04] MEDS: ATORVASTATIN 10 MG TABLET PO (08:31)
[2023-04-04] MEDS: OMEGA 3 POLYUNSAT FATTY ACIDS 1 GM CAP PO (08:31)
[2023-04-04] MEDS: amLODIPine BESYLATE 5 MG TABLET PO (08:32)
[2023-04-04] MEDS: ACETAMINOPHEN 325 MG TABLET 650 MG PO ×2 (08:34→15:16)
[2023-04-04] MEDS: DOCUSATE SODIUM 100 MG CAPSULE PO ×2 (08:35→16:58)
[2023-04-04] MEDS: lisinopriL 20 MG TABLET PO (08:35)
[2023-04-04] MEDS: BISACODYL 5 MG TABLET EC PO (08:35)
--- NOTE | 2023-04-04 11:09 | PM.PNORT ---
Progress Note: A&P Assessment and Plan (1) Effusion, right knee: Code(s): M25.461 - Effusion, right knee Status: Acute Assessment and Plan: RIGHT KNEE EFFUSION. CULTURES ARE STILL PENDING BUT CURRENTLY NEGATIVE. WBC COUNT IS NORMAL. CLINICALLY HE HAS NO SIGNIFICANT SIGN OF SEPTIC ARTHROSIS. PLAN ON EVALUATION OF PENDING CULTURES FOR FINAL DECISION ON OPERATIVE VS NON OPERATIVE TREATMENT. MAY BE JUST AN EXACERBATION OF ONGOING SEVERE DJD. RE EVALUATION IN AM. Subjective Subjective Date/Time Seen: 04/04/23 11:09 Interval history: RIGHT KNEE EFFUSION ODOING WELL. HE IS VERY COMFORTABLE. HE IS WALKING ON HIS OWN. HE HAS NO NEW SIGN OF INFECTION. Exam Extrem: Other: VSS AFEBRILE KNEE IS NOT WARM, THERE IS NO CELLULITIS, THERE IS A LARGE EFFUSION, MINIMAL PAIN WITH PROM AND AROM CALF SOFT NON TENDER NEG HOMANS SIGN NO NEW SIGNS OF INFECTION Objective Data Vital Signs Vital Signs: Vital Signs - 24 hr 04/03/23 14:00 04/03/23 22:00 04/03/23 20:10 Temperature 36.6 C 37.4 C Pulse Rate 79 98 Respiratory Rate 18 18 Blood Pressure 106/69 128/79 Pulse Oximetry 97 95 Oxygen Delivery Room Air 04/04/23 05:19 04/04/23 08:30 Temperature 37.4 C Pulse Rate 90 Respiratory Rate 18 Blood Pressure 115/73 Pulse Oximetry 95 Oxygen Delivery Room Air Intake/Output Intake/Output: Intake & Output 04/01/23 04/02/23 04/03/23 04/04/23 23:59 23:59 23:59 23:59 Intake Total 1050 2200 810 Output Total 2450 850 Balance 1050 -250 -40 Meds/Results Medications: Active Medications Generic Name Dose Route Start Last Admin Trade Name Freq PRN Reason Stop Dose Admin Acetaminophen 650 mg 04/02/23 23:51 04/04/23 08:34 Acetaminophen 325 Mg Tablet PO 650 mg Q4H PRN Administration Mild Pain (1-3) or Fever Hydrocodone Bitart/Acetaminophen 1 tab 04/02/23 23:51 04/03/23 15:51 Hydrocodone/Acetaminophen (*Crx) 5-325 Mg Tablet PO 1 tab Q4H PRN Administration Moderate Pain (4-6) Amlodipine Besylate 5 mg 04/03/23 11:00 04/04/23 08:32 Amlodipine Besylate 5 Mg Tablet PO 5 mg QAM GLORIA Administration Atorvastatin Calcium 10 mg 04/03/23 11:00 04/04/23 08:31 Atorvastatin 10 Mg Tablet PO 10 mg DAILY GLORIA Administration Bisacodyl 5 mg 04/02/23 23:51 04/04/23 08:35 Bisacodyl 5 Mg Tablet Ec PO 5 mg DAILY PRN Administration Constipation Docusate Sodium 100 mg 04/03/23 09:00 04/04/23 08:35 Docusate Sodium 100 Mg Capsule PO 100 mg BID GLORIA Administration Enoxaparin Sodium 40 mg 04/03/23 09:00 04/04/23 08:35 Enoxaparin 40 Mg/0.4 Ml Syringe SUB-Q Not Given DAILY [facility] Fish Oil 1 gm 04/03/23 11:00 04/04/23 08:31 [place] 3 Polyunsat Fatty Acids 1 Gm Cap PO 1 gm QAM GLORIA Administration Vancomycin HCl 1,500 mg in 500 mls @ 250 mls/hr 04/03/23 19:00 04/03/23 21:33 Vancomycin 1,500 Mg/D5w 500 Ml IVPB Infused Q18H [facility] Infusion Ceftriaxone Sodium 2 gm in 100 mls @ 200 mls/hr 04/03/23 16:00 04/03/23 16:15 Rocephin 2 Gm/Ns 100 Ml IVPB Infused Q24H [facility] Infusion Lisinopril 20 mg 04/03/23 11:00 04/04/23 08:35 Lisinopril 20 Mg Tablet PO 20 mg QAM GLORIA Administration Morphine Sulfate 2 mg 04/02/23 23:51 Morphine Sulfate (*Crx) 2 Mg/Ml Inj IV PUSH Q4H PRN Pain Rated 7-10 Ondansetron HCl 4 mg 04/02/23 23:51 Ondansetron Inj 4 Mg/2 Ml Vial IV PUSH Q6H PRN Nausea And Vomiting Radiology Results: ITS Impressions Knee X-Ray 04/02/23 11:01 Impression: 1: No acute fracture. 2: Moderate tricompartment osteoarthritis of the right knee. 3: Moderate joint effusion. Chest X-Ray 04/02/23 15:14 IMPRESSION: No active cardiopulmonary disease Labs Labs: Laboratory Results - last 24 hr 04/04/23 06:51 WBC 6.6 RBC 4.36 L Hgb 13.3 L Hct 39.9 L MCV 91.5 MCH 30.5 MCHC 33.3 RDW 12.0 Plt Count 201 MPV 10.5 H Immature Gran %
[2023-04-04 12:45] LABS: Vancomycin Trough 7.8 ug/mL (10.0-20.0)
--- NOTE | 2023-04-04 14:34 | PM.IMPN ---
Progress Note: A&P Assessment and Plan (1) Effusion, right knee: Code(s): M25.461 - Effusion, right knee Status: Acute Assessment and Plan: Status post arthrocentesis performed in ED - 60 ccs out, sent for analysis. Analysis of arthrocentesis synovial fluid revealed <2000 RBCs, 42,300 nuc cells, 82 neutrophils, no crystals seen - some testing still pending. Ortho consulted. c/f septic joint due to mild tachycardia and mild elevation in temp (99.8F) in setting of elevated ESR (59) and CRP (18.6). started on ceftriaxone, transitioned to Vanc (pharmacist to dose) until gram stain has resulted. pain control. Continue vancomycin and ceftriaxone He does have history of right knee osteoarthritis needing arthroscopic surgery in the past Awaiting final culture from knee joint Plan HTN: continue home amlodipine and lisinopril. HLD: continue home atorvastatin. supplements: continue fish oil. Diet: heart healthy GI Prophylaxis: not indicated DVT Prophylaxis: SCDs, Lovenox Lines: pIV Code Status: Full Code Subjective Date/time seen: 04/04/23 14:34 Interval history: Feeling better more. Ambulating some. Discussed with Orthopedics. Review of Systems Review of Systems: All systems reviewed & are unremarkable except as noted in HPI and below Exam Narrative: GENERAL: Lying comfortably in bed HEAD:? Normal with no signs of head trauma. EYES:? EOMI, conjunctiva normal ENT:? Hearing grossly intact LUNGS:? Nonlabored breathing. HEART:? [Regular rate and rhythm] ABD:? [Soft], [nontender to palpation] EXT: Pain with movement of R knee; restricted range of motion on right knee. Mildly warm tender to touch. SKIN:? [No rashes or lesions.] NEURO: [Alert and oriented x 3. No gross focal sensory or strength deficits.] PSYCH: Normal affect Objective Data Vital Signs Vital Signs: Vital Signs - 24 hr 04/03/23 22:00 04/03/23 20:10 04/04/23 05:19 Temperature 99.4 F 99.3 F Pulse Rate 98 90 Respiratory Rate 18 18 Blood Pressure 128/79 115/73 Pulse Oximetry 95 95 Oxygen Delivery Room Air 04/04/23 08:30 Temperature Pulse Rate Respiratory Rate Blood Pressure Pulse Oximetry Oxygen Delivery Room Air Intake/Output Intake/Output: Intake & Output 04/01/23 04/02/23 04/03/23 04/04/23 23:59 23:59 23:59 23:59 Intake Total 1050 2200 1170 Output Total 2450 850 Balance 1050 -250 320 Meds/Results Medications: Active Medications Generic Name Dose Route Start Last Admin Trade Name Freq PRN Reason Stop Dose Admin Acetaminophen 650 mg 04/02/23 23:51 04/04/23 08:34 Acetaminophen 325 Mg Tablet PO 650 mg Q4H PRN Administration Mild Pain (1-3) or Fever Hydrocodone Bitart/Acetaminophen 1 tab 04/02/23 23:51 04/03/23 15:51 Hydrocodone/Acetaminophen (*Crx) 5-325 Mg Tablet PO 1 tab Q4H PRN Administration Moderate Pain (4-6) Amlodipine Besylate 5 mg 04/03/23 11:00 04/04/23 08:32 Amlodipine Besylate 5 Mg Tablet PO 5 mg QAM GLORIA Administration Atorvastatin Calcium 10 mg 04/03/23 11:00 04/04/23 08:31 Atorvastatin 10 Mg Tablet PO 10 mg DAILY GL[facility] Administration Bisacodyl 5 mg 04/02/23 23:51 04/04/23 08:35 Bisacodyl 5 Mg Tablet Ec PO 5 mg DAILY PRN Administration Constipation Docusate Sodium 100 mg 04/03/23 09:00 04/04/23 08:35 Docusate Sodium 100 Mg Capsule PO 100 mg BID GLORIA Administration Enoxaparin Sodium 40 mg 04/03/23 09:00 04/04/23 08:35 Enoxaparin 40 Mg/0.4 Ml Syringe SUB-Q Not Given DAILY [facility] Fish Oil 1 gm 04/03/23 11:00 04/04/23 08:31 [place] 3 Polyunsat Fatty Acids 1 Gm Cap PO 1 gm QAM GLORIA Administration Ceftriaxone Sodium 2 gm in 100 mls @ 200 mls/hr 04/03/23 16:00 04/03/23 16:15 Rocephin 2 Gm/Ns 100 Ml IVPB Infused Q24H [facility] Infusion Vancomycin HCl 2,000 mg in 500 mls @ 250 mls/hr 04/04/23 13:00 Vancomycin 2,000 Mg/D5w 500 Ml IVPB Q12H [facility] Lisinopril 20 mg 1
[2023-04-04] MEDS: cefTRIAXone 2 GM/NS 100 ML 2 GM/100 ML BAG IVPB (15:26)
[2023-04-04 20:00] VITALS: O2SAT 97
[2023-04-04 21:22] VITALS: BP 132/77; PULSE 84; RESP 18; TEMP 36.2; O2SAT 97
[2023-04-04] MEDS: HYDROcodone/acetaminophen (*CRX) 5-325 MG TABLET 1 TAB PO (21:32)
[2023-04-05 05:14] VITALS: BP 123/87; PULSE 89; RESP 18; TEMP 36.8; O2SAT 95
[2023-04-05 07:05] LABS: Estimated CRCL calculation 82 ml/min; Estimated Glomerular Filt Rate > 60
[2023-04-05] MEDS: lisinopriL 20 MG TABLET PO (09:00)
[2023-04-05] MEDS: OMEGA 3 POLYUNSAT FATTY ACIDS 1 GM CAP PO (09:00)
[2023-04-05] MEDS: amLODIPine BESYLATE 5 MG TABLET PO (09:00)
[2023-04-05] MEDS: ATORVASTATIN 10 MG TABLET PO (09:00)
[2023-04-05] MEDS: DOCUSATE SODIUM 100 MG CAPSULE PO (09:00)
--- NOTE | 2023-04-05 11:12 | PM.IMPN ---
Progress Note: A&P Assessment and Plan (1) Effusion, right knee: Code(s): M25.461 - Effusion, right knee Status: Acute Assessment and Plan: Status post arthrocentesis performed in ED - 60 ccs out, sent for analysis. Analysis of arthrocentesis synovial fluid revealed <2000 RBCs, 42,300 nuc cells, 82 neutrophils, no crystals seen culture no growth so far. Ortho consulted. c/f septic joint due to mild tachycardia and mild elevation in temp (99.8F) in setting of elevated ESR (59) and CRP (18.6). started on ceftriaxone, and vancomycin pain control. Continue vancomycin and ceftriaxone He does have history of right knee osteoarthritis needing arthroscopic surgery in the past Plan HTN: continue home amlodipine and lisinopril. HLD: continue home atorvastatin. supplements: continue fish oil. Diet: heart healthy GI Prophylaxis: not indicated DVT Prophylaxis: SCDs, Lovenox Lines: pIV Code Status: Full Code Subjective Date/time seen: 04/05/23 11:12 Interval history: No fever chills. Ambulating now swelling and pain is much improved. Review of Systems Review of Systems: All systems reviewed & are unremarkable except as noted in HPI and below Exam Narrative: GENERAL: Lying comfortably in bed HEAD:? Normal with no signs of head trauma. EYES:? EOMI, conjunctiva normal ENT:? Hearing grossly intact LUNGS:? Nonlabored breathing. HEART:? [Regular rate and rhythm] ABD:? [Soft], [nontender to palpation] EXT: Pain with movement of R knee; restricted range of motion on right knee. Mildly warm tender to touch. SKIN:? [No rashes or lesions.] NEURO: [Alert and oriented x 3. No gross focal sensory or strength deficits.] PSYCH: Normal affect Objective Data Vital Signs Vital Signs: Vital Signs - 24 hr 04/04/23 21:22 04/04/23 20:00 04/05/23 05:14 Temperature 97.1 F L 98.2 F Pulse Rate 84 89 Respiratory Rate 18 18 Blood Pressure 132/77 123/87 Pulse Oximetry 97 97 95 Oxygen Delivery Room Air Intake/Output Intake/Output: Intake & Output 04/02/23 04/03/23 04/04/23 04/05/23 23:59 23:59 23:59 23:59 Intake Total 1050 2200 1770 1200 Output Total 2450 1175 1200 Balance 1050 -250 595 0 Meds/Results Medications: Active Medications Generic Name Dose Route Start Last Admin Trade Name Freq PRN Reason Stop Dose Admin Acetaminophen 650 mg 04/02/23 23:51 04/04/23 15:16 Acetaminophen 325 Mg Tablet PO 650 mg Q4H PRN Administration Mild Pain (1-3) or Fever Hydrocodone Bitart/Acetaminophen 1 tab 04/02/23 23:51 04/04/23 21:32 Hydrocodone/Acetaminophen (*Crx) 5-325 Mg Tablet PO 1 tab Q4H PRN Administration Moderate Pain (4-6) Amlodipine Besylate 5 mg 04/03/23 11:00 04/05/23 09:00 Amlodipine Besylate 5 Mg Tablet PO 5 mg QAM GLORIA Administration Atorvastatin Calcium 10 mg 04/03/23 11:00 04/05/23 09:00 Atorvastatin 10 Mg Tablet PO 10 mg DAILY GLORIA Administration Bisacodyl 5 mg 04/02/23 23:51 04/04/23 08:35 Bisacodyl 5 Mg Tablet Ec PO 5 mg DAILY PRN Administration Constipation Docusate Sodium 100 mg 04/03/23 09:00 04/05/23 09:00 Docusate Sodium 100 Mg Capsule PO 100 mg BID GLORIA Administration Enoxaparin Sodium 40 mg 04/03/23 09:00 04/05/23 09:02 Enoxaparin 40 Mg/0.4 Ml Syringe SUB-Q Not Given DAILY [facility] Fish Oil 1 gm 04/03/23 11:00 04/05/23 09:00 [place] 3 Polyunsat Fatty Acids 1 Gm Cap PO 1 gm QAM GLORIA Administration Ceftriaxone Sodium 2 gm in 100 mls @ 200 mls/hr 04/03/23 16:00 04/04/23 15:56 Rocephin 2 Gm/Ns 100 Ml IVPB Infused Q24H [facility] Infusion Vancomycin HCl 2,000 mg in 500 mls @ 250 mls/hr 04/05/23 05:00 04/05/23 06:15 Vancomycin 2,000 Mg/D5w 500 Ml IVPB Infused Q12H [facility] Infusion Lisinopril 20 mg 04/03/23 11:00 04/05/23 09:00 Lisinopril 20 Mg Tablet PO 20 mg QAM GLORIA Administration Morphine Sulfate 2 mg 04/02/23 23:51 Morphine Sulfate (*Crx) 2 Mg/Ml Inj IV
--- NOTE | 2023-04-05 13:13 | PM.PNORT ---
Progress Note: A&P Assessment and Plan (1) Effusion, right knee: Code(s): M25.461 - Effusion, right knee Status: Acute Assessment and Plan: History, exam and radiographs reviewed with the patient. Radiographs reveal severe tricompartmental DJD. Arthrocentesis from ED with final culture results currently pending, no growth to date. Patient currently on ceftriaxone and vancomycin. If final culture results remain negative, will plan for aspiration/injection with cortisone for right knee DJD. PT/OT. WBAT. Pain control. Ice, elevate. Will continue to follow. Subjective Subjective Date/Time Seen: 04/05/23 13:13 Interval history: Patient doing well. Reports improvement in right knee pain. No new concerns. Awaiting final results from cultures at this time. Review of Systems Review of Systems: All systems reviewed & are unremarkable except as noted in HPI and below Exam Const: General: cooperative and average body habitus Nutritional Appearance: average body habitus Orientation/consciousness: patient oriented x3 Limitations: no limitations HENMT: Head: normal to inspection Ears: hearing grossly normal bilaterally Face/Nose/Sinus: Normal external nose present and normal facial exam Face and sinus: normal facial exam Mouth: Yes moist mucous membranes Teeth and gingiva: dentition normal Eyes: General: appearance normal, both eyes and all related structures Pupils: Equal, round and reactive pupils present EOM: EOMs intact bilaterally Neck: Neck: normal visual inspection Chest: Chest palpation & inspection: normal inspection of the chest Resp: Effort & Inspection: normal respiratory effort and able to speak in complete sentences Neuro: General: patient oriented x3 Cranial nerves: Yes Equal, round and reactive pupils present Extrem: General: normal to inspection, capillary refill normal, no calf tenderness and normal gait (antalgic ) Right lower extremity: normal to inspection, normal capillary refill and knee Details: normal to inspection, tenderness (AROM/PROM with pain), swelling (moderate right knee joint effusion ), abnormal ROM Details: pain with active ROM during Details: in extension and in flexion and pain with passive ROM during Details: in extension and in flexion, knee ligament exam normal, Inez's Test Details: positive medially and crepitus (with flexion/extension of the knee. (patella) ) Location: at the kneww and at the patella; no ecchymosis and no unusual warmth Left lower extremity: normal to inspection, normal capillary refill and knee Details: normal to inspection, normal ROM, knee ligament exam normal and Inez's Test (negative ); no tenderness and no swelling Objective Data Vital Signs Vital Signs: Vital Signs - 24 hr 04/04/23 21:22 04/04/23 20:00 04/05/23 05:14 Temperature 36.2 C L 36.8 C Pulse Rate 84 89 Respiratory Rate 18 18 Blood Pressure 132/77 123/87 Pulse Oximetry 97 97 95 Oxygen Delivery Room Air 04/05/23 08:45 Temperature Pulse Rate Respiratory Rate Blood Pressure Pulse Oximetry Oxygen Delivery Room Air Intake/Output Intake/Output: Intake & Output 04/02/23 04/03/23 04/04/23 04/05/23 23:59 23:59 23:59 23:59 Intake Total 1050 2200 1770 1860 Output Total 2450 1175 1200 Balance 1050 -250 595 660 Meds/Results Medications: Active Medications Generic Name Dose Route Start Last Admin Trade Name Freq PRN Reason Stop Dose Admin Acetaminophen 650 mg 04/02/23 23:51 04/04/23 15:16 Acetaminophen 325 Mg Tablet PO 650 mg Q4H PRN Administration Mild Pain (1-3) or Fever Hydrocodone Bitart/Acetaminophen 1 tab 04/02/23 23:51 04/04/23 21:32 Hydrocodone/Acetaminophen (*Crx) 5-325 Mg Tablet PO 1 tab Q4H PRN Administration Moderate Pain (4-6) Amlodipine Besylate 5 mg 04/03/23 11:00 04/05/23 09:00 Amlodipine Besylate 5 Mg Tablet PO 5 mg QAM GLORIA Administration Atorvastatin Calcium 10 mg 04/03/23 11:
[2023-04-05 14:00] VITALS: BP 111/65; PULSE 87; RESP 18; TEMP 36.8; O2SAT 98
[2023-04-05 19:30] LABS: Vancomycin Random 12.4 ug/mL (10-20)
[2023-04-05 20:51] VITALS: BP 121/74; PULSE 92; RESP 18; TEMP 36.7; O2SAT 97
[2023-04-06 05:57] VITALS: BP 111/81; PULSE 92; RESP 18; TEMP 36.4; O2SAT 96
[2023-04-06 06:58] LABS: Basophils Percent Auto 0.5 % (0.2-1.2); Eosinophils Absolute Auto 0.3 K/mm3 (0-0.3); Eosinophils Percent Auto 3.8 % (0-4.4); Hematocrit 44.5 % (42.0-52.0); Hemoglobin 14.7 g/dL (14.0-18.0); Immature Granulocyte Absolute 0.05 K/mm3 (0.00-0.031); Immature Granulocyte Percent A 0.6 % (0-0.5); Lymphocytes Absolute Auto 1.78 K/mm3 (0.9-3.2); Lymphocytes Percent Auto 20.7 % (18.3-44.2); Mean Corpuscular Hemoglobin 30.2 pg (26-34); Mean Corpuscular Volume 91.4 fl (80-100); Mean Platelet Volume 10.2 fl (7.4-10.4); Monocytes Absolute Auto 0.9 K/mm3 (0.1-0.6); Monocytes Percent Auto 10.6 % (2.6-8.5); Neutrophils Absolute Auto 5.5 K/mm3 (1.3-6.7); Neutrophils Percent Auto 63.8 % (45.5-73.1); Platelet Count Result 292 k/mm3 (150-375); Red Blood Count 4.87 M/mm3 (4.6-6.20); Red Cell Distribution Width 12.2 % (11.5-14.5); White Blood Count 8.6 K/mm3 (4.5-10.0)
[2023-04-06 07:47] LABS: Alanine Aminotransferase 33 U/L (6-50); Albumin Level 3.9 g/dL (3.5-5.1); Alkaline Phosphatase 85 U/L (38-126); Anion Gap 11 mmol/L (8-16); Aspartate Amino Transferase 34 U/L (17-59); Bilirubin,Total 0.9 mg/dL (0.2-1.3); Blood Urea Nitrogen 14 mg/dL (9-20); Calcium 9.3 mg/dL (8.4-10.2); Carbon Dioxide 26 mmol/L (22-30); Chloride 101 mmol/L (98-107); Estimated CRCL calculation 74 ml/min; Estimated Glomerular Filt Rate > 60; Glucose 107 mg/dL (65-110); Magnesium 2.4 mg/dL (1.6-2.3); Potassium 3.9 mmol/L (3.4-5.0); Sodium 138 mmol/L (137-145)
[2023-04-06] MEDS: DOCUSATE SODIUM 100 MG CAPSULE PO (09:14)
[2023-04-06] MEDS: OMEGA 3 POLYUNSAT FATTY ACIDS 1 GM CAP PO (09:14)
[2023-04-06] MEDS: lisinopriL 20 MG TABLET PO (09:14)
[2023-04-06] MEDS: ATORVASTATIN 10 MG TABLET PO (09:14)
[2023-04-06 09:15] VITALS: BP 114/70; PULSE 90; RESP 14; O2SAT 100
[2023-04-06] MEDS: amLODIPine BESYLATE 5 MG TABLET PO (09:16)
[2023-04-06 09:52] LABS: CRP 6.8 mg/dL (<1.0)
--- NOTE | 2023-04-06 12:15 | PM.PNORT ---
Progress Note: A&P Assessment and Plan (1) Effusion, right knee: Code(s): M25.461 - Effusion, right knee Status: Acute Assessment and Plan: History, exam and radiographs reviewed with the patient. Radiographs reveal severe tricompartmental DJD. Arthrocentesis from ED with final culture results currently pending, no growth to date. Per [facility], final results will not be available for 7-10 days from date of draw. Patient no longer on ceftriaxone and vancomycin as IV access was lost yesterday and Dr. Corbin denied need for oral antibiotics. Given final cultures will no be available for another 2-5 days, we planned to aspirate the right knee today under sterile conditions for additional pain relief. Patient agreeable, consent obtained. Aspiration performed under sterile conditions. 50mL of serosanguineous fluid aspirated from the right knee. NO injection performed given no culture results. New CRP today is 6.8 which is down from the original CRP of 19.8. WBC normal. Patient was able to walk around the room and in the hallways with provider without severe pain s/p aspiration today. No instability. Recommended use of walker/cane until he is able to be evaluated by the orthopedic outpatient clinic. Discussed PT/OT but patient declines as he feels confident in his stability. Will continue to follow cultures. Okay to d/c without antibiotics from an orthopedic standpoint. Plan Discussed history, exam and radiographs with attending MD, Dr. Corbin. Agrees with current plan as indicated above. No further recommendations at this time. Agrees with discharge planning. Subjective Subjective Date/Time Seen: 04/06/23 12:15 Interval history: Patient doing well. Reports significant improvement in pain. Improvement in ROM of the knee with AROM in bed. Getting up to bedside commode. Review of Systems Review of Systems: All systems reviewed & are unremarkable except as noted in HPI and below Exam Const: General: cooperative and average body habitus Nutritional Appearance: average body habitus Orientation/consciousness: patient oriented x3 Limitations: no limitations HENMT: Head: normal to inspection Ears: hearing grossly normal bilaterally Face/Nose/Sinus: Normal external nose present and normal facial exam Face and sinus: normal facial exam Mouth: Yes moist mucous membranes Teeth and gingiva: dentition normal Eyes: General: appearance normal, both eyes and all related structures Pupils: Equal, round and reactive pupils present EOM: EOMs intact bilaterally Neck: Neck: normal visual inspection Chest: Chest palpation & inspection: normal inspection of the chest Resp: Effort & Inspection: normal respiratory effort and able to speak in complete sentences Neuro: General: patient oriented x3 Cranial nerves: Yes Equal, round and reactive pupils present Extrem: General: normal to inspection, capillary refill normal, no calf tenderness and normal gait (antalgic ) Right lower extremity: normal to inspection, normal capillary refill and knee Details: normal to inspection, tenderness (AROM/PROM with pain), swelling (moderate right knee joint effusion ), abnormal ROM Details: pain with active ROM during Details: in extension and in flexion and pain with passive ROM during Details: in extension and in flexion, knee ligament exam normal, Inez's Test Details: positive medially and crepitus (with flexion/extension of the knee. (patella) ) Location: at the kneww and at the patella; no ecchymosis and no unusual warmth Left lower extremity: normal to inspection, normal capillary refill and knee Details: normal to inspection, normal ROM, knee ligament exam normal and Inez's Test (negative ); no tenderness and no swelling Objective Data Vital Signs Vital Signs: Vital Signs - 24 hr 04/05/23 14:00 04/05/23 20:51 04/05/23 20:00 Temperature 36.8 C 36.7 C Pulse Rate 87 92 Respiratory Rate 18 18 Blood Pressure 111/65 121/74 Pu
--- NOTE | 2023-04-06 12:15 | WPDPROCEDUR ---
Procedures Joint Aspiration/Injection Joint Asp./Inject. 1: Time out performed: Yes (CONSENT OBTAINED ) Side of body: right Joint aspirated: knee Ultrasound guidance: No Skin prep: Povidone-Iodine1% Local anesthesia used: lidocaine 1% (5) Amount of anesthesia used (ml): 5 Needle size used: 22G Fluid obtained: clear Total fluid obtained (ml): 50 Medication injected, if any: Lidocaine Amount of medication injected (ml): 5 Patient tolerated procedure: well Complications: none Additional comments: The risks of injection were reviewed including but not limited to skin color changes, atrophy of the soft tissue, tendon or soft tissue rupture, joint degeneration, hyper inflammatory response, allergic reaction, continued pain or dysfunction. Specific risks of the procedure including deep infection or soft tissue rupture or recurrence of symptoms reviewed. No guarantees were offered. The patient understands the need for possible further treatment.
--- NOTE | 2023-04-06 13:42 | PM.DS ---
DS: Admitting Diagnosis Discharge Date 04/06/2023 Admitting Diagnosis Right knee pain DS: Discharge Diagnosis Discharge Diagnosis (1) Effusion, right knee: Code(s): M25.461 - Effusion, right knee Status: Acute DS: Summary Hospital Course Hospital Course: Right knee pain: status post arthrocentesis performed in ED - 60 ccs out, sent for analysis. Analysis of arthrocentesis synovial fluid revealed <2000 RBCs, 42,300 nuc cells, 82 neutrophils, no crystals seen culture no growth so far.? Ortho consulted. Concern for septic joint due to mild tachycardia and mild elevation in temp (99.8F) in setting of elevated ESR (59) and CRP (18.6). He was started on ceftriaxone, and vancomycin along with pain control.? Synovial fluid culture remain negative with no growth of organisms. He does have history of right knee osteoarthritis needing arthroscopic surgery in the past and suspect could be related to inflammation related to underlying osteoarthritis as well. The pain has improved significantly. No antibiotics required and will be followed up by Orthopedics as an outpatient basis. Time Spent with Patient Time attestation: Total time spent providing and/or coordinating discharge services: 35 minutes Exam Narrative: GENERAL: Lying comfortably in bed HEAD:? Normal with no signs of head trauma. EYES:? EOMI, conjunctiva normal ENT:? Hearing grossly intact LUNGS:? Nonlabored breathing. HEART:? [Regular rate and rhythm] ABD:? [Soft], [nontender to palpation] EXT: Pain with movement of R knee; restricted range of motion on right knee. Mildly warm tender to touch. Much improved SKIN:? [No rashes or lesions.] NEURO: [Alert and oriented x 3. No gross focal sensory or strength deficits.] PSYCH: Normal affect DS: Data Data Completed and Pending Labs on day of discharge: Labs from last 24 hours 04/06/23 04/05/23 06:34 17:21 WBC 8.6 RBC 4.87 Hgb 14.7 Hct 44.5 MCV 91.4 MCH 30.2 MCHC 33.0 RDW 12.2 Plt Count 292 MPV 10.2 Immature Gran % (Auto) 0.6 H Neut % (Auto) 63.8 Lymph % (Auto) 20.7 Williams % (Auto) 10.6 H Eos % (Auto) 3.8 Baso % (Auto) 0.5 Lymph # (Auto) 1.78 Williams # (Auto) 0.9 H Eos # (Auto) 0.3 Baso # (Auto) 0.0 Abs Immat Gran (auto) 0.05 H Absolute Neuts (auto) 5.5 Absolute Nucleated RBC 0.0 Nucleated RBC % 0.0 Sodium 138 Potassium 3.9 Chloride 101 Carbon Dioxide 26 Anion Gap 11 BUN 14 Creatinine 0.90 Estim Creat Clear Calc 74 Estimated GFR > 60 Glucose 107 Calcium 9.3 Magnesium 2.4 H Total Bilirubin 0.9 AST 34 ALT 33 Alkaline Phosphatase 85 C-Reactive Protein 6.8 H Total Protein 8.0 Albumin 3.9 Random Vancomycin 12.4 Preliminary micro results at discharge 04/02/23 12:38 Anaerobic Culture - Preliminary Synovial Fluid Right Knee Aerobic Culture - Preliminary 04/02/23 14:13 Blood Culture - Preliminary Blood 04/02/23 14:13 Blood Culture - Preliminary Blood Imaging Radiologist's impression: ITS Impressions Knee X-Ray 04/02/23 11:01 Impression: 1: No acute fracture. 2: Moderate tricompartment osteoarthritis of the right knee. 3: Moderate joint effusion. Chest X-Ray 04/02/23 15:14 IMPRESSION: No active cardiopulmonary disease Discharge Plan Discharge Attending physician on discharge: Luigi Lee Consulting providers: Girish Corbin; Luigi Lee Discharging Clinician: Luigi Lee Anticipated Discharge Date/Time: 04/06/23 13:24 Patient Disposition: Home, Self-Care Activity: as tolerated Diet: heart healthy Patient Instructions: Antibiotic Form Stand Alone Forms: General Discharge Information Follow-up/Referrals: Girish Corbin MD [Physician] - 1 Week Alistair Mijares MD [Primary Care Provider] - 1 Week Discharge Medications: Continued amlodipine 5 mg Tablet 5 mg PO DAILY atorvastatin 10 mg tablet 5
[2023-04-06 14:00] VITALS: BP 133/75; PULSE 90; RESP 18; TEMP 36.2; O2SAT 98
[2023-04-07 07:06] LABS: Glucose Synovial Fluid <10 mg/dL
[2023-04-09 11:31] LABS: Total Protein Synovial Fluid 4.4
== END 2023-04-06 15:10 | disposition home or self-care (01) ==
LOC: ANHED 17:08 → ANH3MEDSUR 17:26
PROVIDERS: Nurse Practitioner Family; Student in an Organized Health Care Education/Training Program; Admitting Provider Internal Medicine; Emergency Provider Emergency Medicine; PCP Internal Medicine; Visit Provider Internal Medicine
DX: M25.461 Effusion, right knee (principal); M17.11 Unilateral primary osteoarthritis, right knee; I10 Essential (primary) hypertension; N40.0 Benign prostatic hyperplasia without lower urinary tract symptoms; E78.5 Hyperlipidemia, unspecified; M88.9 Osteitis deformans of unspecified bone; R21 Rash and other nonspecific skin eruption; E55.9 Vitamin D deficiency, unspecified; F10.90 Alcohol use, unspecified, uncomplicated; Z79.52 Long term (current) use of systemic steroids; Z82.49 Family history of ischemic heart disease and other diseases of the circulatory system; Z79.899 Other long term (current) drug therapy
CPT/HCPCS: 20610 ×2; 36415; 71045; 73562; 80048; 80053; 80202; 81001; 82565; 82945; 83735; 84145; 84157; 85025; 85652; 86140; 87040; 87070; 87075; 87086; 87205; 89051; 89060; 96365; 96366; 96367; 96375; 99285; A9270; G0378; J0696; J1650; J3370; J7030; J7120

== ENCOUNTER 2023-04-14 15:18 | Outpatient (CLI) | payer MEDICARE, SELFPAY ==
[2023-04-14 16:12] LABS: Appearance Urine Clear (Clear); Bacteria Urine None Seen /hpf; Bilirubin Urine Negative (Negative); Blood Urine Negative (Negative); Color Urine Yellow (Yellow); Glucose Urine UA Negative (Negative); Ketones Urine Negative (Negative); Leukocyte Esterase Ur 1+ LEU/UL (Negative); Nitrate Urine Negative (Negative); Non Pathogenic Casts 0-2; Protein Urine Negative (Negative); RBC Urine 0-2 /hpf (0-2); Specific Grav Ur 1.018 (1.001-1.035); Squamous Epithelial Cell Urine None seen /hpf (Few); Urobilinogen Urine 0.2 mg/dL (<2.0); pH Urine 6.5 (5.0-9.0)
[2023-04-14 16:38] LABS: Add Urine Microscopic? YES
== END 2023-04-14 15:19 | disposition home or self-care (01) ==
PROVIDERS: PCP Internal Medicine; Visit Provider Internal Medicine
DX: R30.0 Dysuria (principal)
CPT/HCPCS: 81001; 87086

== ENCOUNTER 2023-05-07 12:29 | Outpatient (CLI) | payer MEDICARE, SELFPAY ==
--- NOTE | 2023-05-07 12:46 | ECHO_ITS ---
Patient Info Name: Wilson Merrill Age: 73 years : 1950 Gender: Male Ht: 73 in Wt: 219 lbs BSA: 2.28 m2 HR: 94 bpm BP: 124 / 76 mmHg Technical Quality: Fair Exam Date: 05/07/2023 12:50 PM Exam Location: Echo Lab Patient Status: Outpatient Admit Date: 05/07/2023 Staff Ordering Physician: Alistair Mijares MD Attending Provider: Alistair Mijares MD Referring Physician: Maryana WHITE; Exam Type: CA echo doppler color flow Study Info Indications I10 - Essential (primary) hypertension R94.31 - Abnormal electrocardiogram ECG EKG Complete two-dimensional, color flow and Doppler transthoracic echocardiogram is performed. Summary 1. Complete two-dimensional, color flow and Doppler transthoracic echocardiogram is performed. 2. Left ventricular chamber dimension is normal. 3. Basal to mid posterior wall is thin and akinetic. 4. Left ventricular systolic function is normal, estimated at 55-60%. 5. The left ventricular diastolic function is grade I diastolic dysfunction. 6. E/e' 8 is minimally elevated. 7. There is mild aortic valve sclerosis. Left Ventricle Basal to mid posterior wall is thin and akinetic. E/e' 8 is minimally elevated. Left ventricular chamber dimension is normal. Left ventricular systolic function is normal, estimated at 55-60%. The left ventricular diastolic function is grade I diastolic dysfunction. Right Ventricle Right ventricular systolic function is normal and with normal TAPSE 2.2 cm. Right ventricular chamber dimension is normal. Left Atria Left atrial chamber dimension is normal. Right Atria Right atrial chamber dimension is normal. Aortic Valve The aortic valve is trileaflet. There is mild aortic valve sclerosis. There is no aortic valve stenosis. There is no aortic valve regurgitation. Pulmonic Valve There is no pulmonic regurgitation. Mitral Valve There is no mitral valve stenosis. There is no mitral valve regurgitation. Tricuspid Valve There is no tricuspid valve regurgitation. Pericardium/Pleural There is no pericardial effusion. Inferior Vena Cava Normal inferior vena cava with >50% collapse upon inspiration consistent with normal right atrial pressure, 5 mmHg. Aorta The aortic root size at the sinus of Valsalva is normal. Left Ventricular Outflow Tract Name Value Normal LVOT 2D LVOT Diameter 2.0 cm LVOT Doppler LVOT Peak Gradient 5 mmHg LVOT Mean Gradient 3 mmHg LVOT VTI 23 cm LVOT VTI/AV VTI Ratio 0.7 LVOT Stroke Volume 72 ml LVOT CO 8.4 l/min LVOT CI 3.7 l/min/m2 Pulmonic Valve Name Value Normal PV Doppler PV Peak Gradient 3 mmHg Mitral Valve Name Value
== END 2023-05-07 12:30 | disposition home or self-care (01) ==
PROVIDERS: PCP Internal Medicine; Visit Provider Internal Medicine
DX: R94.31 Abnormal electrocardiogram [ECG] [EKG] (principal); R93.1 Abnormal findings on diagnostic imaging of heart and coronary circulation; I35.8 Other nonrheumatic aortic valve disorders; I10 Essential (primary) hypertension
CPT/HCPCS: 93306

== ENCOUNTER 2023-08-26 09:39 | Outpatient (CLI) | payer MEDICARE, SELFPAY ==
[2023-08-26 10:22] LABS: Alanine Aminotransferase 20 U/L (6-50); Albumin Level 4.3 g/dL (3.5-5.1); Alkaline Phosphatase 101 U/L (38-126); Anion Gap 4 mmol/L (4-12); Aspartate Amino Transferase 23 U/L (17-59); Bilirubin,Total 1.5 mg/dL (0.2-1.3); Blood Urea Nitrogen 11 mg/dL (9-20); Calcium 9.1 mg/dL (8.4-10.2); Carbon Dioxide 32 mmol/L (22-30); Chloride 103 mmol/L (98-107); Cholesterol 98 mg/dL (0-200); Estimated Glomerular Filt Rate > 60; Glucose 97 mg/dL (65-110); HDL Direct 41 mg/dL; Potassium 3.8 mmol/L (3.4-5.0); Sodium 139 mmol/L (137-145); Triglycerides 79 mg/dL (<150)
[2023-08-26 10:33] LABS: LDL Cholesterol Direct 57 mg/dL
[2023-08-26 11:34] LABS: Free T4 Free Thyroxine 0.85 ng/mL (0.78-2.19)
[2023-08-26 11:46] LABS: Hemoglobin A1C 5.6 % (<5.7)
== END 2023-08-26 09:40 | disposition home or self-care (01) ==
LOC: ANHLAB 09:42
PROVIDERS: PCP Internal Medicine; Visit Provider Internal Medicine
DX: Z13.29 Encounter for screening for other suspected endocrine disorder (principal); R73.03 Prediabetes; Z79.899 Other long term (current) drug therapy; E78.5 Hyperlipidemia, unspecified; I10 Essential (primary) hypertension
CPT/HCPCS: 36415; 80053; 80061; 83036; 84439; 84443

== ENCOUNTER 2024-03-03 10:01 | Outpatient (CLI) | payer MEDICARE, SELFPAY ==
[2024-03-03 10:43] LABS: Alanine Aminotransferase 24 U/L (6-50); Albumin Level 4.4 g/dL (3.5-5.1); Alkaline Phosphatase 96 U/L (38-126); Anion Gap 8 mmol/L (4-12); Aspartate Amino Transferase 26 U/L (17-59); Bilirubin,Total 1.3 mg/dL (0.2-1.3); Blood Urea Nitrogen 11 mg/dL (9-20); Carbon Dioxide 28 mmol/L (22-30); Chloride 103 mmol/L (98-107); Cholesterol 130 mg/dL (0-200); Estimated Glomerular Filt Rate > 60; Glucose 99 mg/dL (65-110); HDL Direct 48 mg/dL; Potassium 4.1 mmol/L (3.4-5.0); Sodium 139 mmol/L (137-145); Triglycerides 99 mg/dL (<150)
[2024-03-03 10:54] LABS: LDL Cholesterol Direct 60 mg/dL
== END 2024-03-03 10:02 | disposition home or self-care (01) ==
PROVIDERS: PCP Internal Medicine; Visit Provider Internal Medicine
DX: E78.5 Hyperlipidemia, unspecified (principal); I10 Essential (primary) hypertension
CPT/HCPCS: 36415; 80053; 80061

== ENCOUNTER 2024-07-06 09:54 | Outpatient (CLI) | payer MEDICARE, SELFPAY ==
[2024-07-06 10:56] LABS: Basophils Percent Auto 0.3 % (0.2-1.2); Eosinophils Percent Auto 0.3 % (0-4.4); Hematocrit 44.1 % (42.0-52.0); Hemoglobin 15.2 g/dL (14.0-18.0); Lymphocytes Absolute Auto 1.17 K/mm3 (0.9-3.2); Lymphocytes Percent Auto 38.4 % (18.3-44.2); Mean Corpuscular HGB Conc 34.5 g/dl (32-36); Mean Corpuscular Volume 89.8 fl (80-100); Monocytes Absolute Auto 0.7 K/mm3 (0.1-0.6); Monocytes Percent Auto 23.6 % (2.6-8.5); Neutrophils Absolute Auto 1.1 K/mm3 (1.3-6.7); Neutrophils Percent Auto 37.4 % (45.5-73.1); Platelet Count Result 142 k/mm3 (150-375); Red Blood Count 4.91 M/mm3 (4.6-6.20); Red Cell Distribution Width 12.6 % (11.5-14.5); White Blood Count 3.1 K/mm3 (4.5-10.0)
[2024-07-06 11:18] LABS: Alanine Aminotransferase 37 U/L (6-50); Albumin Level 4.1 g/dL (3.5-5.1); Alkaline Phosphatase 89 U/L (38-126); Anion Gap 10 mmol/L (4-12); Aspartate Amino Transferase 38 U/L (17-59); Bilirubin,Total 0.9 mg/dL (0.2-1.3); Blood Urea Nitrogen 15 mg/dL (9-20); Calcium 8.5 mg/dL (8.4-10.2); Carbon Dioxide 26 mmol/L (22-30); Chloride 102 mmol/L (98-107); Cholesterol 99 mg/dL (0-200); Estimated Glomerular Filt Rate > 60; Glucose 99 mg/dL (65-110); HDL Direct 42 mg/dL; Potassium 3.4 mmol/L (3.4-5.0); Sodium 138 mmol/L (137-145); Triglycerides 65 mg/dL (<150)
[2024-07-06 11:27] LABS: Hemoglobin A1C 5.9 % (<5.7)
[2024-07-06 11:30] LABS: LDL Cholesterol Direct 36 mg/dL
[2024-07-06 11:35] LABS: Add Urine Microscopic? YES; Appearance Urine Clear (Clear); Bacteria Urine None Seen /hpf; Bilirubin Urine Negative (Negative); Blood Urine Negative (Negative); Color Urine Yellow (Yellow); Glucose Urine UA Negative (Negative); Ketones Urine 2+ mg/dL (Negative); Leukocyte Esterase Ur Negative LEU/UL (Negative); Nitrate Urine Negative (Negative); Non Pathogenic Casts 0-2; Protein Urine 1+ mg/dL (Negative); RBC Urine 0-2 /hpf (0-2); Specific Grav Ur 1.024 (1.001-1.035); Squamous Epithelial Cell Urine None Seen /hpf (Few); Urobilinogen Urine 0.2 mg/dL (<2.0); WBC Urine 0-5 /hpf (0-3); pH Urine 5.5 (5.0-9.0)
[2024-07-06 11:48] LABS: Prostate Specific Antigen 1.6 ng/mL (< OR = 4.0)
[2024-07-06 12:04] LABS: Free T4 Free Thyroxine 1.09 ng/dL (0.78-2.19); Vitamin D 25 Hydroxy 29.4 ng/mL
== END 2024-07-06 09:55 | disposition home or self-care (01) ==
PROVIDERS: PCP Internal Medicine; Visit Provider Internal Medicine
DX: E55.9 Vitamin D deficiency, unspecified (principal); R73.03 Prediabetes; I10 Essential (primary) hypertension; E78.5 Hyperlipidemia, unspecified; Z12.5 Encounter for screening for malignant neoplasm of prostate; Z79.899 Other long term (current) drug therapy; Z13.29 Encounter for screening for other suspected endocrine disorder
CPT/HCPCS: 36415; 80053; 80061; 81001; 82306; 83036; 84153; 84439; 84443; 85025; G0103

== ENCOUNTER 2024-08-09 16:16 | Outpatient (CLI) | payer MEDICARE, SELFPAY ==
[2024-08-09 16:44] LABS: Basophils Percent Auto 0.7 % (0.2-1.2); Eosinophils Absolute Auto 0.2 K/mm3 (0-0.3); Eosinophils Percent Auto 2.7 % (0-4.4); Hematocrit 43.8 % (42.0-52.0); Hemoglobin 14.9 g/dL (14.0-18.0); Immature Granulocyte Absolute 0.01 K/mm3 (0.00-0.031); Immature Granulocyte Percent A 0.2 % (0-0.5); Lymphocytes Absolute Auto 1.74 K/mm3 (0.9-3.2); Lymphocytes Percent Auto 31.4 % (18.3-44.2); Mean Corpuscular Hemoglobin 31.1 pg (26-34); Mean Corpuscular Volume 91.4 fl (80-100); Mean Platelet Volume 10.2 fl (7.4-10.4); Monocytes Absolute Auto 0.6 K/mm3 (0.1-0.6); Monocytes Percent Auto 10.5 % (2.6-8.5); Neutrophils Percent Auto 54.5 % (45.5-73.1); Platelet Count Result 206 k/mm3 (150-375); Red Blood Count 4.79 M/mm3 (4.6-6.20); Red Cell Distribution Width 12.9 % (11.5-14.5); White Blood Count 5.5 K/mm3 (4.5-10.0)
[2024-08-09 19:54] LABS: Folic Acid 11.7 ng/mL (2.76->20)
== END 2024-08-09 16:17 | disposition home or self-care (01) ==
LOC: ANHLAB 16:18
PROVIDERS: PCP Internal Medicine; Visit Provider Internal Medicine
DX: E53.8 Deficiency of other specified B group vitamins (principal); I10 Essential (primary) hypertension
CPT/HCPCS: 36415; 82607; 82746; 85025

== ENCOUNTER 2024-12-21 09:34 | Outpatient (CLI) | payer MEDICARE, SELFPAY ==
[2024-12-21 10:21] LABS: Hematocrit 43.4 % (42.0-52.0); Hemoglobin 14.8 g/dL (14.0-18.0); Immature Granulocyte Percent A 0.2 % (0-0.5); Lymphocytes Absolute Auto 1.76 K/mm3 (0.9-3.2); Mean Corpuscular HGB Conc 34.1 g/dl (32-36); Mean Corpuscular Hemoglobin 31.0 pg (26-34); Mean Corpuscular Volume 91.0 fl (80-100); Nucleated Red Blood Cells Absolute Auto 0.000 K/mm3 (0.0-0.012); Nucleated Red Blood Cells Perc 0.0 % (0.0-0.2); Platelet Count Result 170 k/mm3 (150-375); Red Blood Count 4.77 M/mm3 (4.6-6.20); White Blood Count 5.0 K/mm3 (4.5-10.0)
[2024-12-21 10:35] LABS: Hemoglobin A1C 5.8 % (<5.7)
[2024-12-21 10:46] LABS: Alanine Aminotransferase 20 U/L (6-50); Albumin Level 4.2 g/dL (3.5-5.1); Alkaline Phosphatase 77 U/L (38-126); Anion Gap 6 mmol/L (4-12); Aspartate Amino Transferase 25 U/L (17-59); Bilirubin,Total 1.4 mg/dL (0.2-1.3); Blood Urea Nitrogen 11 mg/dL (9-20); Calcium 9.0 mg/dL (8.4-10.2); Carbon Dioxide 27 mmol/L (22-30); Chloride 105 mmol/L (98-107); Cholesterol 110 mg/dL (0-200); Estimated Glomerular Filt Rate > 60; Glucose 98 mg/dL (65-110); HDL Direct 43 mg/dL; Potassium 3.7 mmol/L (3.4-5.0); Sodium 138 mmol/L (137-145); Total Protein 7.2 g/dL (6.3-8.2); Triglycerides 98 mg/dL (<150)
[2024-12-21 11:09] LABS: Free T4 Free Thyroxine 0.90 ng/dL (0.78-2.19)
[2024-12-21 11:23] LABS: Thyroid Stimulating Hormone 1.920 uIU/mL (0.465-4.680)
[2024-12-21 11:42] LABS: Vitamin B12 339.0 pg/mL (239-931)
== END 2024-12-21 09:35 | disposition home or self-care (01) ==
PROVIDERS: PCP Internal Medicine; Visit Provider Internal Medicine
DX: E78.5 Hyperlipidemia, unspecified (principal); I10 Essential (primary) hypertension; E53.8 Deficiency of other specified B group vitamins; Z13.29 Encounter for screening for other suspected endocrine disorder; Z13.1 Encounter for screening for diabetes mellitus; Z79.899 Other long term (current) drug therapy
CPT/HCPCS: 36415; 80053; 80061; 82607; 83036; 84439; 84443; 85025